=== PATIENT | female | born 1945 | race Caucasian/White ===

== ENCOUNTER → 2019-03-06 11:18 | Outpatient (CLI) | payer MEDICARE, OTHER, SELFPAY ==
--- NOTE | 2019-03-06 | DI.US.S_ITS ---
PROCEDURE: US PERIPH VENOUS UP EXTREM LT INDICATIONS: SHORTNESS OF BREATH,DYSPNEA TECHNIQUE: Real-time imaging, as well as color and pulse Doppler interrogation, was performed of the right upper extremity deep veins from the inferior neck to the antecubital fossa. COMPARISON: None. FINDINGS: The internal jugular vein, visualized portions of the subclavian vein, axillary, and brachial veins are free of intraluminal thrombus. Where physically possible, the veins are normally compressible. Color and pulse Doppler demonstrate normal intraluminal flow, with expected phasicity and pulsatility. Additional scanning of the cephalic and basilic veins of the superficial system demonstrate normal compressibility, without thrombus. Right Jain's cyst measuring 3.6 x 1.1 x 2.0 cm IMPRESSION: Right Jain's cyst. No evidence of deep venous thrombosis. Dictated by: Dru Sanchez M.D. on 03/06/2019 at 13:33 Approved by: Dru Sanchez M.D. on 03/06/2019 at 13:35
--- NOTE | 2019-03-06 | DI.RAD.S_ITS ---
PROCEDURE: XR CHEST 2V INDICATIONS: SHORTNESS OF BREATH,DYSPNEA TECHNIQUE: 2 views of the chest were acquired. COMPARISON: None. FINDINGS: Surgical changes and devices: None. Lungs and pleura: Lungs are clear. No pleural effusions or pneumothorax. Mediastinum: Mediastinal contours are normal. Heart size is normal. Bones and chest wall: No suspicious bony abnormalities. Soft tissues appear unremarkable. IMPRESSION: No acute disease Dictated by: Dru Sanchez M.D. on 03/06/2019 at 13:27 Approved by: Dru Sanchez M.D. on 03/06/2019 at 13:29
== END ==
PROVIDERS: Visit Provider Internal Medicine Cardiovascular Disease
DX: R06.02 Shortness of breath (principal); R06.00 Dyspnea, unspecified; M71.21 Synovial cyst of popliteal space [Baker], right knee
CPT/HCPCS: 71046; 93971

== ENCOUNTER → 2020-07-01 16:07 | Outpatient (CLI) | payer MEDICARE, OTHER, SELFPAY ==
--- NOTE | 2020-07-01 | DI.RAD.S_ITS ---
PROCEDURE: XR KNEE RT 3V INDICATIONS: Right Knee Pain TECHNIQUE: 3 views of the knee were acquired. COMPARISON: None. FINDINGS: Bones: No fractures or dislocations. No suspicious bony lesions. Moderate medial and patellofemoral compartment narrowing. Chondrocalcinosis is present. Periarticular osteophytes are present. No gross erosions. Soft tissues: Mild joint effusion. No suspicious soft tissue calcifications. IMPRESSION: Medial patellofemoral degenerative compartment narrowing as well as chondrocalcinosis as above. Dictated by: Amada Norman M.D. on 07/01/2020 at 17:10 Approved by: Amada Norman M.D. on 07/01/2020 at 17:11
== END ==
PROVIDERS: PCP Family Medicine; Referring Provider Family Medicine; Visit Provider Family Medicine
DX: M17.11 Unilateral primary osteoarthritis, right knee (principal); M11.261 Other chondrocalcinosis, right knee
CPT/HCPCS: 73562

== ENCOUNTER → 2020-09-02 13:53 | Outpatient (CLI) | payer MEDICARE, OTHER, SELFPAY ==
[2020-09-02 15:00] LABS: Add Manual Diff / Slide Review NO; Basophils Absolute Auto 0 /uL (0-100); Basophils Percent Auto 0.7 % (0-2); Eosinophils Absolute Auto 100 /uL (0-450); Eosinophils Percent Auto 2.4 % (2-4); Hematocrit 40.3 % (36-46); Hemoglobin 13.5 g/dL (12.0-16.0); Lymphocytes Absolute Auto 1200 /uL (1100-4500); Lymphocytes Percent Auto 25.7 % (25-40); Mean Corpuscular HGB Conc 33.6 % (30-36); Mean Corpuscular Hemoglobin 32.4 PG (26-34); Mean Corpuscular Volume 96.3 fL (80-100); Monocytes Absolute Auto 500 /uL (0-900); Monocytes Percent Auto 9.8 % (3-14); Neutrophils Absolute Auto 2900 /uL (1500-7000); Neutrophils Percent Auto 61.4 % (50-75); Platelet Count 168 X10^3/uL (150-400); Red Blood Cell Count 4.19 X10^6/uL (4.0-5.2); Red Cell Distribution Width 14.2 % (11.6-14.8); White Blood Cell Count 4.7 X10^3/uL (4.5-11.0)
[2020-09-02 15:30] LABS: Hemoglobin A1C% w Est Avg Glu 5.8 % (4.0-6.0)
[2020-09-02 15:52] LABS: BUN Creatinine Ratio 18.9 (6-22); Blood Urea Nitrogen 23 mg/dL (7-17); Calcium 9.5 mg/dL (8.4-10.2); Carbon Dioxide 25 mmol/L (22-32); Chloride 105 mmol/L (98-107); Estimated Glomerular Filt Rate 42.7 mL/min (>60); Glucose 108 mg/dL (80-110); HEMOLYSIS < 15 (0-50); Potassium 4.7 mmol/L (3.4-5.1); Sodium 136 mmol/L (137-145)
== END ==
PROVIDERS: PCP Family Medicine; Referring Provider Orthopaedic Surgery Adult Reconstructive Orthopaedic Surgery; Visit Provider Orthopaedic Surgery Adult Reconstructive Orthopaedic Surgery
DX: Z01.818 Encounter for other preprocedural examination (principal); R73.9 Hyperglycemia, unspecified; Z01.812 Encounter for preprocedural laboratory examination
CPT/HCPCS: 36415; 80048; 83036; 85025; 93005

== ENCOUNTER → 2020-09-05 08:44 | Outpatient (CLI) | payer MEDICARE, OTHER, SELFPAY ==
[2020-09-05 11:07] LABS: COVID19 -Nasal RAPID Negative (Negative)
== END ==
PROVIDERS: PCP Family Medicine; Visit Provider Nurse Practitioner
DX: Z01.812 Encounter for preprocedural laboratory examination (principal); Z20.828 Contact with and (suspected) exposure to other viral communicable diseases
CPT/HCPCS: 87635; C9803

== ENCOUNTER 2020-09-08 14:45 | Observation (INO) | payer MEDICARE, OTHER, SELFPAY ==
[2020-09-02 11:45] VITALS: BMI 36.6
[2020-09-07] VITALS (17 sets, daily range): BP systolic 127–181; BP diastolic 59–89; PULSE 66–88; RESP 10–19; TEMP 35.8–36.6; O2SAT 89–98; BMI 34.9; BMI 38.8
--- NOTE | 2020-09-07 | DI.RAD.S_ITS ---
PROCEDURE: XR KNEE RT 1TO2V INDICATIONS: POST OP TECHNIQUE: To view(s) of the knee acquired. COMPARISON: Merged With [facility], , XR KNEE RT 3V, 07/01/2020, 16:10. FINDINGS: Bones: Patient is status post knee joint arthroplasty. Hardware components are in expected positions. Visualized bony structures are intact. Soft tissues: Overlying postoperative changes are noted. IMPRESSION: Normal alignment after right total knee arthroplasty. Dictated by: Barry Simpson M.D. on 09/07/2020 at 11:12 Approved by: Barry Simpson M.D. on 09/07/2020 at 11:13
[2020-09-07] MEDS: LACTATED RINGERS 1,000 ML 42 ML IV ×2 (07:00→09:39)
[2020-09-07] MEDS: ACETAMINOPHEN 325 MG TABLET 975 MG PO (07:06)
[2020-09-07] MEDS: CELECOXIB 200 MG CAPSULE 400 MG PO (07:06)
--- NOTE | 2020-09-07 07:38 | PM.PREOP ---
Pre-operative Note COVID-19 COVID-19 status: Negative Result date/Date tested (Pos, Neg/Pending): 09/05/20 Interval Note History & Physical reviewed/Exam performed by Physician: Yes Changes to H&P: No H&P completed within 30 days and has changed as indicated here:: Plan for right TKA
[2020-09-07] MEDS: CEFAZOLIN 2 GM/100 ML FROZ.PIGGY IV ×3 (08:13→23:56)
[2020-09-07] MEDS: TRANEXAMIC ACID 1,000 MG VIAL 1000 MG IV ×2 (08:25→09:31)
--- NOTE | 2020-09-07 08:32 | SUR.OPER ---
Supine on padded OR bed, head on pillow, arms secured on padded arm boards at <90 degrees abduction, legs uncrossed, safety belt at lower abdomen, tape over blanket over left lower leg. Right leg on padded bed in control of surgeon.
[2020-09-07] MEDS: KETOROLAC 30 MG/ML VIAL IV (08:39)
[2020-09-07] MEDS: ROPIVACAINE 0.5% PF 30ML 20 ML INJ (08:39)
[2020-09-07] MEDS: MORPHINE 4 MG/ML INJ INJ (08:40)
[2020-09-07] MEDS: POVIDONE-IODINE SPONGE STICKS 1 APPLIC TOP (08:40)
--- NOTE | 2020-09-07 09:47 | P.OP_ITS ---
Operative Date/Time/Diagnoses Date of procedure: 09/07/20 Time of procedure: 09:47 Pre-op diagnosis: right knee OA Post-op diagnosis: same Procedure & Clinicians Procedure: Right TKA Same procedure as scheduled: Yes Indications: Right knee OA resistant to further conservative care Surgeon: Too Otoole Mechanical Technical Service Specialist: Kita Gonzalez Anesthesia Type: General Operative Notes Findings: Right knee OA with varus alignment Closure Type: primary Specimen(s): none sent Prosthetic devices, grafts, tissues, transplants, or devices: Francois and nephew BCS Journey 2 size 6 right femoral component Size 4 right Journey tibial base plate 29 mm simone 2 oval button Right size 3-411 mm thick Journey 2 BCS polyethylene Estimated Blood Loss (mL): 200 Blood products transfused: none Tourniquet time (min): 52 Procedure in detail: Patient was met in the preoperative holding area where the site and side of surgery marked by MD. All last minute questions were answered. Informed consent had been reviewed in preoperative clinic but was also reviewed the preop holding area. Patient was then brought back to operating room where she was induced under general anesthesia. She had not received a spinal anesthetic after several attempts. The right lower extremity then had a nonsterile tourniquet placed on the right thigh and the right lower extremity then prepped and draped in normal sterile fashion. A surgical time-out was performed verifying site and side of surgery as well as the name of the patient. A incision over the right knee in line with the long axis of the extremity was made in the skin with a 10. Blade. The medial lateral flaps were then elevated with a new 10. Blade and a medial parapatellar arthrotomy was performed. Hoffa's fat pad was then removed as well as the lateral meniscus. The ACL was then also removed. Whitesides line was marked and a drill was used to gain access to the femoral canal proximally 1 cm anterior tthe PCL footprint. The same drill was then used to gain access to the tibial canal at the ACL footprint. Intramedullary robert with cutting jig was then placed for the right femur. This cut was made in neutral position. The intramedullary robert was then placed inside the tibia and the cutting jig was then placed the skin and underneath the medial sclerotic bone. The varus valgus alignment was verified with a drop robert. This cut was then made and the tibial bone piece was removed along with the medial meniscus. This point extension block was brought in with a little laxity at 9 mm and 11 mm block was then placed with good stability and no varus valgus laxity. Gap gold reclaimer was then used to set rotation this was then verified against Demarcus's line. The femur was sized to size 6 the 5 in 1 cutting block was then malleted into place and all 5 cuts were then made. The knee was trialed with a size 6 femoral component and a size 4 tibial component with 11 mm CR polyethylene. This provided good varus valgus stability as well as flexion- extension range of motion. There was no lift-off in deep flexion. The patella was then freehand cut and sized to 29 mm oval button. This was then drilled and 29 mm oval button was then placed and brought through range of motion there was no lift-off of the patellar button. The tibial base plate was then marked using of floating technique. The trial components were then removed and the tibial base plate was then returned on the tibia and drilled and punched for the tibial keel. This point all components were removed the knee was thoroughly irrigated and local anesthetic was then placed into the periarticular soft tissues with a focus in the posterior capsule. Pulse lavage was used to clean the cut edges of the femur patella and tibia. Services the were then copiously dried. Cement was then packed into the tibial keel and the finger packed onto the cut surface of the tibia. The tibial base plate had cement placed on the undersurface of the tibial plate was then malleted into place. Excess cement was removed with a [place]. Cement was then finger packed onto the cut surface of the femur as well as placed onto the feet of the femoral component. This was then malleted into place and all excess cement was removed. 11 mm thick CR polyethylene trial was then placed in a knee was brought to full extension and the ankle was held in internal rotation. Cement was then packed onto the cut surface of the patella and between pegs on the patellar button. This was then clamped in place excess cement was removed. Betadine solution was then placed into the wound for sev eral minutes prior to being pulse lavage away with copious normal saline. The tourniquet was then let down at 52 minutes of time. Once the cement was fully cured the trial component was removed 11 mm thick the BCS polyethylene was then selected and placed. Verifying that the medial and lateral tabs were well engaged without any soft tissue interposition the medial parapatellar arthrotomy was then closed using 1. Vicryl interrupted fashion followed by a Quill suture in running fashion. The subcutaneous layer was then closed with interrupted 2 Vicryl followed by 3-0 Stratafix in the subcuticular layer followed by Dermabond and Aquacel dressing. Complications: none Post-operative Condition: stable Disposition: PACU Plan for aftercare: WBAT RLE, 24 hours post-op abx, ASA 81mg BID for 6 weeks
--- NOTE | 2020-09-07 10:47 | PC.NURSE ---
Day shift: Pt on AC unit from PACU at approx 1040. SHe is A&Ox3. FIBERGLASS TUBE MOLDER intact and PPP. VS WNL. RA 95%. SCD's tolerated. Bed alarm is on. Dr Otoole has seen the Pt. Denies any pain or nausea. Tolerating ice chips. Oriented to room and call light. Call light in reach. Bed alarm is on. Pt agrees to ot get OOB w/o help from staff.
[2020-09-07] MEDS: LACTATED RINGERS 1,000 ML 100 ML IV ×2 (11:01→21:08)
[2020-09-07 11:19] LABS: Add Manual Diff / Slide Review NO; Basophils Absolute Auto 0 /uL (0-100); Basophils Percent Auto 0.6 % (0-2); Eosinophils Absolute Auto 100 /uL (0-450); Eosinophils Percent Auto 1.1 % (2-4); Hematocrit 39.5 % (36-46); Hemoglobin 13.1 g/dL (12.0-16.0); Lymphocytes Absolute Auto 1300 /uL (1100-4500); Mean Corpuscular HGB Conc 33.1 % (30-36); Mean Corpuscular Hemoglobin 31.8 PG (26-34); Monocytes Absolute Auto 400 /uL (0-900); Neutrophils Absolute Auto 4000 /uL (1500-7000); Neutrophils Percent Auto 68.3 % (50-75); Platelet Count 156 X10^3/uL (150-400); Red Blood Cell Count 4.11 X10^6/uL (4.0-5.2); Red Cell Distribution Width 14.6 % (11.6-14.8); White Blood Cell Count 5.9 X10^3/uL (4.5-11.0)
[2020-09-07] MEDS: ACETAMINOPHEN 325 MG TABLET 650 MG PO ×2 (13:31→19:23)
[2020-09-07] MEDS: OXYCODONE IR 10 MG TABLET PO ×4 (13:31→22:26)
--- NOTE | 2020-09-07 15:40 | PT.IIE ---
Addendum entered and electronically signed by Charity Shepherd PT 09/07/20 17:46: Additional goal: pt will use platform step to access tall bed CGA Original Note: Addendum entered and electronically signed by Charity Shepherd PT 09/07/20 17:19: Pt is LUMMI, does not use hearing aids. Original Note: Current Diagnoses Unilateral primary osteoarthritis, right knee (09/07/20) Surgery Performed Operation Date: 09/07/20 07:45 Actual Procedures p Total Knee Arthroplasty(Right) - Too Otoole MD Surgical History (Last Updated 09/02/20 @ 12:10 by Criss Vicente RN) History of bladder surgery History of colon resection (~2013) Hx of appendectomy Hx of bilateral cataract extraction (07/2020) Hx of cholecystectomy Medical History (Last Updated 09/02/20 @ 11:49 by Criss Vicente RN) Diabetes Diverticulosis HLD (hyperlipidemia) HTN (hypertension) Insomnia Osteoarthritis Physical Therapy Inpatient Evaluation/Re-Eval M1 PT/OT-IP Prior Functional Status Start: 09/07/20 11:21 Freq: NEEDED Status: Active Protocol: Document 09/07/20 15:38 AW (Rec: 09/07/20 16:19 AW [id number]) Medical Review Prior Functional Status Medical History Reviewed Yes Communication WNL. Pt is an effective and verbose verbal communicator. Mobility and Gait Pt has been using a 4WW and/or a SPC for all mobility over the past two years. she states she could walk up to 15 minutes at a time with an AD. Activities of Daily Living and IADL's Independent with all ADL's. Prior Functional Level (Other details) Pt denies history of falls. I 'm super careful. Social History Household Members spouse Living Arrangements House Number of Floors (Floors) Two Floors Number of Stairs To Enter/Railing? 2STE with wide bilateral rails . Pt can only use one rail at a time. Home Environment High Toilet Home Equipment Four Wheel Walker,Straight Cane,Bedside Commode,Grab Bars Near Toilet,Grab Bars In Shower Employment Status Retired Additional Social History Comment Pt uses a walk-in tub for bathing. Her bed is tall and she uses a stool to step up to it. She lives with her spouse , Fady, who will be home and able to assist at discharge. M2 PT-IP Current Condition Start: 09/07/20 11:21 Freq: NEEDED Status: Active Protocol: Document 09/07/20 15:38 AW (Rec: 09/07/20 16:26 AW [id number]) Physical Therapy Current Condition Current Condition Evaluation Date 09/07/20 Treatment Diagnosis R TKA; difficulty in walking Weight Bearing Status Weight Bearing Status Weight Bear as Tolerated M3 PT-IP Subjective Start: 09/07/20 11:21 Freq: NEEDED Status: Active Protocol: Document 09/07/20 15:38 AW (Rec: 09/07/20 16:26 AW [id number]) Subjective Physical Therapy Visit Type Type Initial Evaluation Visit Start Time 12:50 Visit Stop Time 15:38 Total Visit Minutes 52 Notes split visits [id number] and [id number] to coordinate with RN for pain management Number of [employer] MEMBER Visits 0 Physical Therapy Visit Comments Patient Comments Pt is willing to participate with PT Patient Goals To return home with spouse support Therapy Pain Assessment Pain When Pain Assessed At Rest Pain Present Pain Present Pain Reported Location right knee Intensity 5 Scale Used Numeric (0 - 10) Pain Management Techniques Timing of Activity with Medications M4 PT-IP Mobility and Gait Start: 09/07/20 11:21 Freq: NEEDED Status: Active Protocol: Document 09/07/20 15:38 AW (Rec: 09/07/20 16:26 AW [id number]) PT-Bed Mobility Assessment Supine to Sit Supine to Sit Minimal Assistance,1 Person Assistance Sit to Supine Sit to Supine Minimal Assistance,1 Person Assistance Scooting Scooting to Edge of Bed Contact Guard Assistance PT-Transfer Assessment Sit to and From Stand Sit to and from Stand Minimal Assistance,1 Person Assistance,Use of Upper Extremities Equipment Transfer Assistive Device Gait Belt,Front Wheeled Walker Transfers Transfer Destination Bed,Toilet Transfer Technique Stand Step Pivot Transfer Ability Level of Assist Minimal Assistance,1 Person Assistance Comments Mobility Comments Pt was reclined in bed with BP 154/90 HR 73 SpO2 96% RA. With HOB flat, pt completed supine to sit min A x 1 and sat EOB without UE support. She scooted herself forward and stood from the bed in lowest position min A x 1. After brief weight shifting and education on WB status, pt ambulated to the window with FWW CGA, turned around, and ambulated to the toilet. She transferred to and from the toilet with heavy use of right -side grab bar min A x 1. Pt completed all pericare without assist. She then ambulated with FWW CGA to the bed where she sat and then scooted herself toward [facility] CGA. Pt needed min A x 1 to elevate her operative leg to the bed. Pt was positioned with call light and all needs in reach, bed alarm on for safety. Gait Assessment Gait Gait Assistance Required: Contact Guard Assist Distance (Feet) 12 Able to Maintain Weight Bearing Status Yes During Gait Assistive Devices Assistive Device Gait Belt,Front Wheeled Walker Orthotic/Prosthetic Devices or Brace: No Gait Deviations General Gait Pattern Antalgic,Decreased Stride Length,Decreased Feet Clearance,Flexed Trunk,Step-to Gait,Wide Based Gait Factors Limiting Gait Function Factors Limiting Gait Function Decreased Activity Tolerance, Decreased Sensation,Decreased Strength,Limited Range of Motion,Pain,Poor Balance,Poor Safety Awareness Comments Gait Comments See mobility comments for details. Stair Climbing Assessment Comments Stair Climbing Comments Not assessed. PT-Balance Assessment Sitting Balance and Reactions Static Sitting Balance Ability Good Dynamic Sitting Balance Ability Good Standing Balance and Reactions Static Standing Balance Ability Good Dynamic Standing Balance Ability Good Device Used FWW M5 PT-IP Objective Assessments Start: 09/07/20 11:21 Freq: NEEDED Status: Active Protocol: Document 09/07/20 15:38 AW (Rec: 09/07/20 16:34 AW [id number]) Orientation Orientation/Cognition Level of Alertness Alert Orientation Name,Day of Week,Place, Situation Safety Awareness Decreased Safety Awareness Memory Description No Deficits Noted Gross Range of Motion Lower Extremity ROM Assessment Right Impaired Strength Lower Extremity Strength Assessment Right Impaired Coordination Assessment Gross Coordination Gross Coordination WNL Sensation Assessment Sensation Gross Sensation WNL Muscle Tone Muscle Tone WNL Yes M6 PT-IP Treatment Start: 09/07/20 11:21 Freq: NEEDED Status: Active Protocol: Document 09/07/20 15:38 AW (Rec: 09/07/20 16:34 AW [id number]) Physical Therapy Treatment Exercises Exercises Ankle Pumps,Gluteal Sets Education Education Provided Precautions,Weight Bearing Status,Post-Op Packet,Safety Other Treatments Other Treatment Performed Provided education on role of PT, plan of care, WB status, and rationale for use of FWW after surgery. M7 PT-IP Assessment and Plan Start: 09/07/20 11:21 Freq: NEEDED Status: Active Protocol: Document 09/07/20 15:38 AW (Rec: 09/07/20 16:34 AW [id number]) PT Summary Assessment and Plan Potential Rehabilitation Potential Good Status of Condition at Evaluation Evolving Summary Impairments Pain,ROM,Strength,Balance,Bed Mobility,Transfers,Gait, Activity Tolerance Assessment Summary Ivet is a 75yo woman seen for PT evaluation on POD0 following R TKA. She is modified independent at baseline with use of SPC or 4WW up to 15 minutes at a time . On evaluation, pt requried min assist for most mobility with FWW. Educated pt on need for FWW vs 4WW due to heavy weightbearing with upper extremities and pt understands . Will follow up with pt in AM to determine if she needs hospital to dispense a walker. PT anticipates pt will be safe to discharge home with assist and outpatient therapy once medically cleared. Pt will need stair training prior to discharge. Goals Bed Mobility Goal Standby Assistance Transfer Goal Standby Assistance,Front Wheeled Walker Gait Goal Standby Assistance,Front Wheel Walker Gait Distance 100 Other Goals - up/down 2 steps with unilateral rail CGA Days to Meet Goals 4 Frequency of Treatment Frequency Of Treatment Twice a Day Treatment Plan Physical Therapy Treatment Plan Bed Mobility Training,Transfer Training,Gait Training, Therapeutic Exercise,Balance Retraining,Post Op Education, Discharge Planning,Hot or Cold Pack Recommendations To Nursing Amount of Assist Needed 1 Person Assist Discharge Recommendations PT Discharge Recommendations Home with Assistance, Outpatient PT Equipment Needed for Home Before FWW Discharge Transportation Needs at Discharge Private Vehicle
[2020-09-07] MEDS: DOCUSATE 100 MG CAPSULE PO (19:24)
[2020-09-07] MEDS: ATORVASTATIN 20 MG TABLET PO (19:24)
[2020-09-07] MEDS: ASPIRIN EC 81 MG TABLET PO (19:24)
[2020-09-08] VITALS (7 sets, daily range): BP systolic 119–147; BP diastolic 52–93; PULSE 70–97; RESP 16–18; TEMP 36.3–37.1; O2SAT 90–94
[2020-09-08] MEDS: OXYCODONE IR 10 MG TABLET PO ×3 (01:40→07:30)
--- NOTE | 2020-09-08 04:49 | PC.NURSE ---
Patient c/o knee pain, medicated with pain med see nov.
[2020-09-08 05:43] LABS: Hematocrit 36.5 % (36-46); Hemoglobin 12.1 g/dL (12.0-16.0)
--- NOTE | 2020-09-08 07:28 | PM.PNPO.1 ---
Subjective Subjective Date Patient Seen: 09/08/20 Time Patient Seen: 07:29 Interval history: POD #1 s/p R TKA with Dr. Otoole. Patient is a poor historian this morning. She is alert and oriented, but mildly confused about questions this morning involving pain control and medications. She is not consistent with her answers. She states she did get up with physical therapy yesterday in her room. She states she has oxycodone at home already. Exam Vital Signs (past 8 hours): - 09/08/20 05:38 Temperature 97.5 F L Pulse Rate 90 Respiratory Rate 16 Blood Pressure 147/71 H Pulse Oximetry 90 L Oxygen Delivery Method Room Air Oxygen Flow Rate 0 Narrative Exam Narrative: Patient lying in bed no acute distress. She is alert and oriented x3. Dressing on right knee is CDI. Beck wrap in place. SCDs on and functioning. Calves are soft, compressible, nontender bilaterally. Sensation intact to light touch throughout bilateral lower extremities. She is able to actively dorsiflex and plantar flex. Pulses are symmetrical. Objective Labs Result Diagrams: 09/08/20 05:15 09/08/20 05:15 Labs: Laboratory Results - last 24 hr 09/07/20 09/08/20 11:10 05:15 WBC 5.9 RBC 4.11 Hgb 13.1 12.1 Hct 39.5 36.5 MCV 96.0 MCH 31.8 MCHC 33.1 RDW 14.6 Plt Count 156 Neut % (Auto) 68.3 Lymph % (Auto) 23.0 L Meigs % (Auto) 7.0 Eos % (Auto) 1.1 L Baso % (Auto) 0.6 Neut # (Auto) 4000 Lymph # (Auto) 1300 [place]igs # (Auto) 400 Eos # (Auto) 100 Baso # (Auto) 0 PFSH Medical History Diabetes Diverticulosis HLD (hyperlipidemia) HTN (hypertension) Insomnia Osteoarthritis Surgical History History of bladder surgery History of colon resection (~2013) Hx of appendectomy Hx of bilateral cataract extraction (07/2020) Hx of cholecystectomy Social History household members: spouse Smoking Status: Never smoker alcohol intake: never Assessment & Plan Post-op Postoperative Procedures: Procedures Operation Date: 09/07/20 07:45 Actual Procedures Side Surgeon p Total Knee Arthroplasty Right Too Otoole MD Patient will continue to mobilize with physical therapy today. Continue current pain control. Her mild confusion is likely from oxycodone, or anesthesia yesterday. Sodium has decreased from 136 to 132 but at this time unlikely to be SIADH. Advised her to monitor her blood sugars closely at home as these tend to elevate after surgery. Patient will likely discharge home tomorrow.
[2020-09-08 07:55] LABS: Alanine Aminotransferase 8 IU/L (<35); Albumin 3.2 g/dL (3.5-5.0); Albumin Globulin Ratio 1.1 (1.0-2.8); Alkaline Phosphatase 59 U/L (38-126); Aspartate Aminotransferase 20 IU/L (14-36); Bilirubin Total 0.4 mg/dL (0.2-1.3); Blood Urea Nitrogen 19 mg/dL (7-17); Calcium 8.8 mg/dL (8.4-10.2); Carbon Dioxide 28 mmol/L (22-32); Chloride 102 mmol/L (98-107); Estimated Glomerular Filt Rate 47.2 mL/min (>60); Globulin 2.8 g/dL (1.7-4.1); Glucose 131 mg/dL (80-110); HEMOLYSIS < 15 (0-50); Potassium 4.3 mmol/L (3.4-5.1); Sodium 132 mmol/L (137-145)
[2020-09-08] MEDS: DOCUSATE 100 MG CAPSULE PO ×2 (08:57→20:51)
[2020-09-08] MEDS: lisinopriL 5 MG TABLET PO (08:57)
[2020-09-08] MEDS: METOPROLOL IR 50 MG TABLET 100 MG PO (08:57)
[2020-09-08] MEDS: ACETAMINOPHEN 325 MG TABLET 650 MG PO ×2 (08:58→20:51)
[2020-09-08] MEDS: ASPIRIN EC 81 MG TABLET PO ×2 (08:58→20:51)
[2020-09-08] MEDS: ESTROGENS, CONJUGATED 0.625 MG TABLET 1.25 MG PO (08:59)
--- NOTE | 2020-09-08 09:41 | PT.IPTN ---
Current Diagnoses Unilateral primary osteoarthritis, right knee (09/07/20) Surgery Performed Operation Date: 09/07/20 07:45 Actual Procedures p Total Knee Arthroplasty(Right) - Too Otoole MD Physical Therapy Treatment Note M2 PT-IP Current Condition Start: 09/07/20 11:21 Freq: NEEDED Status: Active Protocol: Document 09/07/20 15:38 AW (Rec: 09/07/20 16:26 AW [id number]) Physical Therapy Current Condition Current Condition Evaluation Date 09/07/20 Treatment Diagnosis R TKA; difficulty in walking Weight Bearing Status Weight Bearing Status Weight Bear as Tolerated M3 PT-IP Subjective Start: 09/07/20 11:21 Freq: NEEDED Status: Active Protocol: Document 09/08/20 09:15 CLB (Rec: 09/08/20 12:39 CLB [id number]) Subjective Physical Therapy Visit Type Type Treatment Note Visit Start Time 09:15 Visit Stop Time 09:41 Total Visit Minutes 26 Number of CLERK GENERAL Visits 1 Physical Therapy Visit Comments Patient Comments Pt is willing to participate with PT Therapy Pain Assessment Pain When Pain Assessed At Rest Pain Present Pain Present Pain Reported Location right knee Intensity 7 Scale Used Numeric (0 - 10) Pain Management Techniques Timing of Activity with Medications M4 PT-IP Mobility and Gait Start: 09/07/20 11:21 Freq: NEEDED Status: Active Protocol: Document 09/08/20 09:15 CLB (Rec: 09/08/20 12:39 CLB [id number]) PT-Bed Mobility Assessment Supine to Sit Supine to Sit Standby Assistance,Head of Bed Elevated Scooting Scooting to Edge of Bed Standby Assistance PT-Transfer Assessment Sit to and From Stand Sit to and from Stand Minimal Assistance,1 Person Assistance,Use of Upper Extremities Equipment Transfer Assistive Device Gait Belt,Front Wheeled Walker Transfers Transfer Destination Chair Transfer Technique Stand Step Pivot Transfer Ability Level of Assist Minimal Assistance,1 Person Assistance Comments Mobility Comments Pt in bed upon arrival requiring SBA for supine to sit, pt donned underwear SBA while sitting on EOB with cues to put operated leg on first. Pt then required Min A and cues for hand placment for safe push off from stable surface rather than both hand on walker. Pt required SBA while pt pulled underwear over hips. Pt ambulated ~15ft with Mod A as pt continued to push walker forward with out stretch arms and refusing to use walker as instructed for safety stating I don't like using it that way, it doesn't feel right. Pt wanted to sit in chair and once close to chair pushed walker away and reach both arms towards chair, CLERK GENERAL use gait belt to guide pts hips into chair. Once in chair pt was given further demonstration on how to use FWW appropriately for safety. Pt verbalized understanding but refused to ambulate further, pt agreeable to perform seated ther ex. Pt left in chair with all needs within reach, COOLER ROOM WORKER informed that there wasn't a chair alarm but pt not safe to be left alone and COOLER ROOM WORKER located a chair alarm and placed it on the pt. Spoke with CANDACE Núñez about pt being impulsive, RN stated she would call . to come for CG training at 1230 today. Gait Assessment Gait Gait Assistance Required: Minimum Assistance,1 Person Assist Distance (Feet) 15 Able to Maintain Weight Bearing Status Yes During Gait Assistive Devices Assistive Device Gait Belt,Front Wheeled Walker Orthotic/Prosthetic Devices or Brace: No Gait Deviations General Gait Pattern Antalgic,Decreased Stride Length,Decreased Feet Clearance,Flexed Trunk,Step-to Gait,Wide Based Gait Factors Limiting Gait Function Factors Limiting Gait Function Decreased Activity Tolerance, Decreased Sensation,Decreased Strength,Difficulty Following Directions,Limited Range of Motion,Pain,Poor Balance,Poor Safety Awareness Comments Gait Comments See mobility comments for details. Stair Climbing Assessment Comments Stair Climbing Comments pt refused stair training. PT-Balance Assessment Sitting Balance and Reactions Static Sitting Balance Ability Good Dynamic Sitting Balance Ability Good Standing Balance and Reactions Static Standing Balance Ability Good Dynamic Standing Balance Ability Good Device Used FWW M5 PT-IP Objective Assessments Start: 09/07/20 11:21 Freq: NEEDED Status: Active Protocol: Document 09/07/20 15:38 AW (Rec: 09/07/20 16:34 AW [id number]) Orientation Orientation/Cognition Level of Alertness Alert Orientation Name,Day of Week,Place, Situation Safety Awareness Decreased Safety Awareness Memory Description No Deficits Noted Gross Range of Motion Lower Extremity ROM Assessment Right Impaired Strength Lower Extremity Strength Assessment Right Impaired Coordination Assessment Gross Coordination Gross Coordination WNL Sensation Assessment Sensation Gross Sensation WNL Muscle Tone Muscle Tone WNL Yes M6 PT-IP Treatment Start: 09/07/20 11:21 Freq: NEEDED Status: Active Protocol: Document 12/29/20 09:15 CLB (Rec: 12/29/20 12:39 CLB [id number]) Physical Therapy Treatment Exercises Exercises Ankle Pumps,Gluteal Sets,Quad Sets Education Education Provided Precautions,Weight Bearing Status,Post-Op Packet,Safety Other Treatments Other Treatment Performed education on FWW use M7 PT-IP Assessment and Plan Start: 09/07/20 11:21 Freq: NEEDED Status: Active Protocol: Document 09/08/20 09:15 CLB (Rec: 09/08/20 12:39 CLB [id number]) PT Summary Assessment and Plan Potential Rehabilitation Potential Good Status of Condition at Evaluation Evolving Summary Impairments Pain,ROM,Strength,Balance,Bed Mobility,Transfers,Gait, Activity Tolerance Assessment Summary Pt required SBA for supine-sit and scooting to EOB. Pt is impulsive during gait and required Mod A for ambulation due to refusal to follow safe walker management. Pt scheduled at 1230 for CG training. Goals Bed Mobility Goal Standby Assistance Transfer Goal Standby Assistance,Front Wheeled Walker Gait Goal Standby Assistance,Front Wheel Walker Gait Distance 100 Other Goals - up/down 2 steps with unilateral rail CGA Days to Meet Goals 4 Frequency of Treatment Frequency Of Treatment Twice a Day Treatment Plan Physical Therapy Treatment Plan Bed Mobility Training,Transfer Training,Gait Training, Therapeutic Exercise,Balance Retraining,Post Op Education, Discharge Planning,Hot or Cold Pack Recommendations To Nursing Amount of Assist Needed 1 Person Assist Discharge Recommendations PT Discharge Recommendations Home with Assistance, Outpatient PT Equipment Needed for Home Before FWW Discharge Transportation Needs at Discharge Private Vehicle
--- NOTE | 2020-09-08 10:19 | CM.DANOTE ---
DCP: Case received, EMR reviewed and met with patient. Introduced self and role. Was able to obtain some information from patient regarding her baseline activity status prior to surgery, as well as current living situation. DCP assessment completed with information currently available. Patient is a 75 year old female who admitted yesterday morning to the care of the orthopedic team. PCP: Dr. Alexander. Payer: confirmed: Medicare/[employer]. Patient came to the hospital via private vehicle for right knee surgery. Patient had right total knee arthroplasty. She has had history of osteoarthritis. Met with patient in her room. She was laying in bed, was somewhat groggy. Confirmed with her that she resides in [place] with her , Fady. She confirmed that he is supportive, and will be assisting her when she goes home. At baseline, patient indicated that she has a cane and walker for home use. She also mentioned that she has stairs in her home, but has bathrooms downstairs, and would be able to stay downstairs if needed. P.T. worked with patient yesterday, and indicated that plan is home with assist. Today, according to Carole BESS, patient is impulsive, not following instructions related to using her walker. Nurse, Mckenzie, will contact , and ortho, as well. Will follow up with P.T, and , if needed. Patient is already set up with outpatient P.T. per patient. Can consider home health if needed, if she is home bound. P: DCP will follow closely. Home is the plan, but she will be here at the hospital for another day. Will see how patient progresses today. She most likely would not qualify for skilled, since she would be OBS, confirmed with ZACHARY Thompson. Home Health may be an option if patient is home bound and not able to go to outpatient P.T. Estrellita Welsh RN/Dance Therapist
[2020-09-08] MEDS: ONDANSETRON 4 MG/2 ML INJ IV (11:53)
[2020-09-08] MEDS: INSULIN ASPART 100 UNIT/ML INSULN PEN SUBCUT (12:16)
--- NOTE | 2020-09-08 12:52 | PC.NURSE ---
Patient was confused and forgetful this AM, had quite a bit of pain per off going shift report Niesha RN. Patient had quite a bit of pain medication in the night, trying to see how it is today with only Tylenol. Patient has also been nauseated this shift. 4mg IV zofran given, Patient is still nauseated an hour after. Prakash Aguilar notified.
--- NOTE | 2020-09-08 13:11 | PT.IPTN ---
Current Diagnoses Unilateral primary osteoarthritis, right knee (09/07/20) Surgery Performed Operation Date: 09/07/20 07:45 Actual Procedures p Total Knee Arthroplasty(Right) - Too Otoole MD Physical Therapy Treatment Note M2 PT-IP Current Condition Start: 09/07/20 11:21 Freq: NEEDED Status: Active Protocol: Document 09/07/20 15:38 AW (Rec: 09/07/20 16:26 AW [id number]) Physical Therapy Current Condition Current Condition Evaluation Date 09/07/20 Treatment Diagnosis R TKA; difficulty in walking Weight Bearing Status Weight Bearing Status Weight Bear as Tolerated M3 PT-IP Subjective Start: 09/07/20 11:21 Freq: NEEDED Status: Active Protocol: Document 09/08/20 12:50 CLB (Rec: 09/08/20 14:57 CLB [id number]) Subjective Physical Therapy Visit Type Type Treatment Note Visit Start Time 12:50 Visit Stop Time 13:11 Total Visit Minutes 21 Notes Pt present. Number of SUBSORTER Visits 2 Physical Therapy Visit Comments Patient Comments Pt nauseous and wanting to go back to bed, refused ambulation and supine ther ex. Therapy Pain Assessment Pain When Pain Assessed At Rest Pain Present Pain Present Pain Reported Location right knee Intensity 10 Scale Used Numeric (0 - 10) Pain Management Techniques Modification of Treatment,Re- positioning,Timing of Activity with Medications M4 PT-IP Mobility and Gait Start: 09/07/20 11:21 Freq: NEEDED Status: Active Protocol: Document 09/08/20 12:50 CLB (Rec: 09/08/20 14:57 CLB [id number]) PT-Bed Mobility Assessment Sit to Supine Sit to Supine Minimal Assistance,1 Person Assistance PT-Transfer Assessment Sit to and From Stand Sit to and from Stand Minimal Assistance,1 Person Assistance,Use of Upper Extremities Equipment Transfer Assistive Device Gait Belt,Front Wheeled Walker Transfers Transfer Destination Bed Transfer Technique Stand Step Pivot Transfer Ability Level of Assist Minimal Assistance,1 Person Assistance Comments Mobility Comments Pt in chair upon arrival stating she is nauseous and just wants to get back to bed. Pt also states pain is 10/10. Pt scooted forward in chair SBA then stood requiring Min A and cues for proper hand placement for safety. Pt performed stand step pivot then pushed walker away reaching for bed even though cues were given to keep walker close. Pt then sat quickly on bed then required Min A of RLE onto bed and cues to bridge with LLE and center hips in bed. Pt performed on HS then stated she wouldn't do any more ther ex due to pain of 10/10. Left pt in bed with alarm on and all needs within reach, present. will return for CG training tomorrow at 1200. Gait Assessment Comments Gait Comments pt refused ambulation due to pain and nausea. Stair Climbing Assessment Comments Stair Climbing Comments unable due to pt pain M5 PT-IP Objective Assessments Start: 09/07/20 11:21 Freq: NEEDED Status: Active Protocol: Document 09/07/20 15:38 AW (Rec: 09/07/20 16:34 AW [id number]) Orientation Orientation/Cognition Level of Alertness Alert Orientation Name,Day of Week,Place, Situation Safety Awareness Decreased Safety Awareness Memory Description No Deficits Noted Gross Range of Motion Lower Extremity ROM Assessment Right Impaired Strength Lower Extremity Strength Assessment Right Impaired Coordination Assessment Gross Coordination Gross Coordination WNL Sensation Assessment Sensation Gross Sensation WNL Muscle Tone Muscle Tone WNL Yes M6 PT-IP Treatment Start: 09/07/20 11:21 Freq: NEEDED Status: Active Protocol: Document 09/08/20 12:50 CLB (Rec: 09/08/20 14:57 CLB [id number]) Physical Therapy Treatment Other Treatments Other Treatment Performed HS M7 PT-IP Assessment and Plan Start: 09/07/20 11:21 Freq: NEEDED Status: Active Protocol: Document 09/08/20 12:50 CLB (Rec: 09/08/20 14:57 CLB [id number]) PT Summary Assessment and Plan Summary Impairments Pain,ROM,Strength,Balance,Bed Mobility,Transfers,Gait, Activity Tolerance Progress Towards Goals Slow Progress due to Pain Assessment Summary Pt transferred from chair to bed requiring Min A and max verbal cues to keep walker close. Pt is impulsive and has difficulty following directions for walker management. Pt reports 10/10 pain. Pt refused ambulation and ther ex due to pain and nausea. Goals Bed Mobility Goal Standby Assistance Transfer Goal Standby Assistance,Front Wheeled Walker Gait Goal Standby Assistance,Front Wheel Walker Gait Distance 100 Other Goals - up/down 2 steps with unilateral rail CGA Days to Meet Goals 4 Frequency of Treatment Frequency Of Treatment Twice a Day Treatment Plan Physical Therapy Treatment Plan Bed Mobility Training,Transfer Training,Gait Training, Therapeutic Exercise,Balance Retraining,Post Op Education, Discharge Planning,Hot or Cold Pack Other Recommendations and Next Treatment Ther ex, bed mobility, sit- Focus stand, advance gait and stair training when able. , Fady Doroteo CG training. Recommendations To Nursing Amount of Assist Needed 1 Person Assist Discharge Recommendations PT Discharge Recommendations Home with Assistance, Outpatient PT Equipment Needed for Home Before FWW Discharge Transportation Needs at Discharge Private Vehicle
[2020-09-08] MEDS: TRAMADOL 50 MG TABLET PO ×2 (13:46→20:51)
[2020-09-08] MEDS: METOCLOPRAMIDE 10 MG/2 ML INJ IV (13:46)
[2020-09-08] MEDS: HYDROCODONE/ACET 10/325 TABLET 1 TAB PO (16:14)
--- NOTE | 2020-09-08 17:12 | PC.NURSE ---
PATIENT IS HAVING SOME NAUSEA WITH DINNER,REFUSES ANY NAUSEA MEDS AT THIS TIME.
[2020-09-08 17:20] LABS: Appearance Urine UA CLEAR; Bilirubin Urine UA NEGATIVE (NEGATIVE); Color Urine UA YELLOW; Glucose Urine UA NEGATIVE (Negative); Ketones Urine UA NEGATIVE (NEGATIVE); Leukocyte Esterase Urine UA NEGATIVE (NEGATIVE); Nitrite Urine UA NEGATIVE (Negative); Occult Blood Urine UA 2+ (Negative); Protein Urine UA NEGATIVE (Negative); Urobilinogen Urine UA 0.2 E.U./dL (0.2)
[2020-09-08 17:22] LABS: pH Urine UA 5.5 (4.5-8.0)
[2020-09-08 17:34] LABS: Bacteria Urine Moderate (10-30); Culture Indicated Urine Specimen Cultured; RBC Urine 1-5/HPF (0-5/HPF); Squamous Epithelial Cell Urine 1-5 /HPF (0-5/HPF); WBC Urine 1-5/HPF (0-5/HPF)
[2020-09-08] MEDS: ATORVASTATIN 20 MG TABLET PO (20:51)
[2020-09-08] MEDS: SODIUM CHLORIDE 0.9% FLUSH 10 ML IV (20:52)
[2020-09-09 03:53] VITALS: BP 126/44; PULSE 77; RESP 16; TEMP 36.8; O2SAT 92
[2020-09-09] MEDS: HYDROCODONE/ACET 10/325 TABLET 1 TAB PO ×2 (04:01→10:01)
[2020-09-09 06:27] LABS: Add Manual Diff / Slide Review NO; Basophils Absolute Auto 0 /uL (0-100); Basophils Percent Auto 0.4 % (0-2); Eosinophils Absolute Auto 100 /uL (0-450); Eosinophils Percent Auto 1.5 % (2-4); Hematocrit 36.6 % (36-46); Hemoglobin 12.1 g/dL (12.0-16.0); Lymphocytes Absolute Auto 1000 /uL (1100-4500); Lymphocytes Percent Auto 15.5 % (25-40); Mean Corpuscular HGB Conc 33.1 % (30-36); Mean Corpuscular Hemoglobin 31.9 PG (26-34); Mean Corpuscular Volume 96.3 fL (80-100); Monocytes Absolute Auto 700 /uL (0-900); Monocytes Percent Auto 11.8 % (3-14); Neutrophils Absolute Auto 4400 /uL (1500-7000); Neutrophils Percent Auto 70.8 % (50-75); Platelet Count 156 X10^3/uL (150-400); White Blood Cell Count 6.2 X10^3/uL (4.5-11.0)
[2020-09-09 06:32] LABS: Alanine Aminotransferase 7 IU/L (<35); Albumin 3.6 g/dL (3.5-5.0); Albumin Globulin Ratio 1.1 (1.0-2.8); Alkaline Phosphatase 61 U/L (38-126); Aspartate Aminotransferase 22 IU/L (14-36); BUN Creatinine Ratio 14.8 (6-22); Bilirubin Total 0.7 mg/dL (0.2-1.3); Blood Urea Nitrogen 16 mg/dL (7-17); Calcium 8.9 mg/dL (8.4-10.2); Carbon Dioxide 29 mmol/L (22-32); Chloride 103 mmol/L (98-107); Estimated Glomerular Filt Rate 49.2 mL/min (>60); Globulin 3.2 g/dL (1.7-4.1); Glucose 118 mg/dL (80-110); HEMOLYSIS < 15 (0-50); Potassium 4.3 mmol/L (3.4-5.1); Sodium 134 mmol/L (137-145); Total Protein 6.8 g/dL (6.3-8.2)
--- NOTE | 2020-09-09 07:38 | PM.PNPO.1 ---
Subjective Subjective Date Patient Seen: 09/09/20 Time Patient Seen: 07:38 Interval history: Patient's pain is mild. Denies fever chills. No nausea vomiting. Patient frustrated with physical therapy yesterday who had her walk in the navarro with her gown being open in the back. She would like to work with a different physical therapist today. Patient does wish to go home today if safe to do so. Exam Vital Signs (past 8 hours): - 09/08/20 23:44 09/09/20 03:53 Temperature 98.4 F 98.3 F Pulse Rate 77 77 Respiratory Rate 16 16 Blood Pressure 119/69 126/44 L Pulse Oximetry 91 92 Oxygen Delivery Method Room Air Oxygen Flow Rate 0 Narrative Exam Narrative: Pleasant 75-year-old female resting comfortably in bed in no apparent distress. Patient is alert and oriented. Right knee dressing is Clean, dry, intact. Sensation grossly intact distal right lower extremity. Motor functions intact distal right lower extremity. Both legs are warm and dry. SCDs on and functioning. Objective Labs Result Diagrams: 09/09/20 06:04 09/09/20 06:04 Labs: Laboratory Results - last 24 hr 09/08/20 09/08/20 09/09/20 05:15 16:30 06:04 WBC 6.2 RBC 3.80 L Hgb 12.1 Hct 36.6 MCV 96.3 MCH 31.9 MCHC 33.1 RDW 14.0 Plt Count 156 Neut % (Auto) 70.8 Lymph % (Auto) 15.5 L [place] % (Auto) 11.8 Eos % (Auto) 1.5 L Baso % (Auto) 0.4 Neut # (Auto) 4400 Lymph # (Auto) 1000 L [place] # (Auto) 700 Eos # (Auto) 100 Baso # (Auto) 0 Sodium 132 L Potassium 4.3 Chloride 102 Carbon Dioxide 28 BUN 19 H Creatinine 1.12 H Estimated GFR 47.2 L BUN/Creatinine Ratio 17.0 Glucose 131 H Calcium 8.8 Total Bilirubin 0.4 AST 20 ALT 8 Alkaline Phosphatase 59 Total Protein 6.0 L Albumin 3.2 L Globulin 2.8 Albumin/Globulin Ratio 1.1 Urine Color Yellow Urine Appearance Clear Urine pH 5.5 Ur Specific [place] 1.010 Urine Protein Negative Urine Glucose (UA) Negative Urine Ketones Negative Urine Occult Blood 2+ H Urine Nitrate Negative Urine Bilirubin Negative Urine Urobilinogen 0.2 Ur Leukocyte Esterase Negative Urine RBC 1-5/hpf Urine WBC 1-5/hpf Ur Squamous Epith Cells 1-5 /hpf Urine Bacteria Moderate (10-30) H Ur Culture Indicated? Specimen cultured 09/09/20 06:04 WBC RBC Hgb Hct MCV MCH MCHC RDW Plt Count Neut % (Auto) Lymph % (Auto) [place] % (Auto) Eos % (Auto) Baso % (Auto) Neut # (Auto) Lymph # (Auto) [place] # (Auto) Eos # (Auto) Baso # (Auto) Sodium 134 L Potassium 4.3 Chloride 103 Carbon Dioxide 29 BUN 16 Creatinine 1.08 H Estimated GFR 49.2 L BUN/Creatinine Ratio 14.8 Glucose 118 H Calcium 8.9 Total Bilirubin 0.7 AST 22 ALT 7 Alkaline Phosphatase 61 Total Protein 6.8 Albumin 3.6 Globulin 3.2 Albumin/Globulin Ratio 1.1 Urine Color Urine Appearance Urine pH Ur Specific [place] Urine Protein Urine Glucose (UA) Urine Ketones Urine Occult Blood Urine Nitrate Urine Bilirubin Urine Urobilinogen Ur Leukocyte Esterase Urine RBC Urine WBC Ur Squamous Epith Cells Urine Bacteria Ur Culture Indicated? [facility] Medical History Diabetes Diverticulosis HLD (hyperlipidemia) HTN (hypertension) Insomnia Osteoarthritis Surgical History History of bladder surgery History of colon resection (~2013) Hx of appendectomy Hx of bilateral cataract extraction (07/2020) Hx of cholecystectomy Social History household members: spouse Smoking Status: Never smoker alcohol intake: never Assessment & Plan Post-op Postoperative Procedures: Procedures Operation Date: 09/07/20 07:45 Actual Procedures Side Surgeon p Total Knee Arthroplasty Right Too Otoole MD Postop day 2 status post right total knee arthroplasty. Patient is stable. Patient seems a little confused yesterday but that has cleared. No reports of confusion per nurse. She will work with physical therapy this for glue mounter operator for morning and likely be discharged later today. Cultures pending on the UA.
[2020-09-09 08:00] VITALS: BP 155/67; PULSE 87; RESP 16; TEMP 37.3; O2SAT 91
--- NOTE | 2020-09-09 09:40 | P.DS_ITS ---
History of Present Illness History of Present Illness Date Patient Seen: 09/09/20 Time Patient Seen: 09:40 Chief complaint: OPB Narrative: See progress note Discharge Providers Provider Date of admission: 09/08/20 14:45 Discharge Date: 09/09/20 Primary care physician: Rao Alexander MD Consults: 09/07/20 10:47 Consult to Discharge Planning Routine Comment: Consult to Physical Therapy Evaluate & Treat Comment: Physician Instructions: postop TKA protocol Consult to Respiratory Therapy Evaluate & Treat Comment: Physician Instructions: Evaluate and treat Discharge provider: Herb Kee PA-C Summary Hospital Course Discharge Diagnosis: right knee OA Diabetes type 2 Hypertension Obesity, BMI 38.9 Status at Discharge Cognitive/behavioral status at discharge: at baseline, oriented Functional status at discharge: uses cane/walker Overall status at discharge: patient is progressing back to baseline Time Spent with Patient Time spent: Less than 30 minutes Exam Vital Signs (past 8 hours): - 09/09/20 03:53 09/09/20 08:00 Temperature 98.3 F 99.1 F Pulse Rate 77 87 Respiratory Rate 16 16 Blood Pressure 126/44 L 155/67 H Pulse Oximetry 92 91 Oxygen Delivery Method Room Air Oxygen Flow Rate 0 Narrative Exam Narrative: see progress note Objective Labs Result Diagrams: 09/09/20 06:04 09/09/20 06:04 Labs: Laboratory Results - last 24 hr 09/08/20 09/09/20 09/09/20 16:30 06:04 06:04 WBC 6.2 RBC 3.80 L Hgb 12.1 Hct 36.6 MCV 96.3 MCH 31.9 MCHC 33.1 RDW 14.0 Plt Count 156 Neut % (Auto) 70.8 Lymph % (Auto) 15.5 L [place] % (Auto) 11.8 Eos % (Auto) 1.5 L Baso % (Auto) 0.4 Neut # (Auto) 4400 Lymph # (Auto) 1000 L [place] # (Auto) 700 Eos # (Auto) 100 Baso # (Auto) 0 Sodium 134 L Potassium 4.3 Chloride 103 Carbon Dioxide 29 BUN 16 Creatinine 1.08 H Estimated GFR 49.2 L BUN/Creatinine Ratio 14.8 Glucose 118 H Calcium 8.9 Total Bilirubin 0.7 AST 22 ALT 7 Alkaline Phosphatase 61 Total Protein 6.8 Albumin 3.6 Globulin 3.2 Albumin/Globulin Ratio 1.1 Urine Color Yellow Urine Appearance Clear Urine pH 5.5 Ur Specific [place] 1.010 Urine Protein Negative Urine Glucose (UA) Negative Urine Ketones Negative Urine Occult Blood 2+ H Urine Nitrate Negative Urine Bilirubin Negative Urine Urobilinogen 0.2 Ur Leukocyte Esterase Negative Urine RBC 1-5/hpf Urine WBC 1-5/hpf Ur Squamous Epith Cells 1-5 /hpf Urine Bacteria Moderate (10-30) H Ur Culture Indicated? Specimen cultured PFS Medical History Diabetes Diverticulosis HLD (hyperlipidemia) HTN (hypertension) Insomnia Osteoarthritis Surgical History History of bladder surgery History of colon resection (~2013) Hx of appendectomy Hx of bilateral cataract extraction (07/2020) Hx of cholecystectomy Social History household members: spouse Smoking Status: Never smoker alcohol intake: never Discharge Assessment & Plan Assessment and Plan Assessment: Patient stable. Patient progressing as expected status post right total knee arthroplasty. Plan of Treatment: Weight-bearing as tolerated right lower extremity. Aspirin 81 mg b.i.d. for 6 weeks. UA culture pending. We will contact patient regarding results. She will mobilize with physical therapy later this morning and be discharged home in stable condition. Discharge Plan Discharge Plan Patient Disposition: Home Provider Discharge Comment: DC home today after PT Discharge orders & Medications Prescriptions: New acetaminophen 325 mg Tablet 650 mg PO TID Qty: 60 RF: 0 hydrocodone-acetaminophen 10-325 mg Tablet 1 tab PO Q4HR PRN (Reason: Pain, Moderate (4-6)) Qty: 60 RF: 0 aspirin 81 mg Tablet,Delayed Release (Dr/Ec) 81 mg PO BID Qty: 60 RF: 0 Continued pioglitazone [Actos] 15 mg Tablet 15 mg PO BID RF: 0 atorvastatin [Lipitor] 20 mg Tablet 20 mg PO BEDTIME RF: 0 metoprolol tartrate 100 mg Tablet 100 mg PO DAILY RF: 0 lisinopril 5 mg Tablet 5 mg PO DAILY RF: 0 Premarin 1.25 mg Tablet 1.25 mg PO DAILY RF: 0 polyethylene glycol 3350 [Miralax] 17 gram Powder In Packet 17 g PO DAILY PRN (Reason: Constipation) RF: 0 Discontinued aspirin 81 mg Tablet 162 mg PO DAILY RF: 0 Follow up/Referrals: Rao Alexander MD [Primary Care Provider] - Too Otoole MD [Physician] - (2 weeks) Diet/Activity/Treatments Diet: Carb-consistent/Diabetic Activity: WBAT Cold/Heat Therapy: ice to knee as needed Skin/Wound/Dressing Care Report to your healthcare provider any signs of infection, such as:: chills, fever, increased pain and unusual drainage Dressing: keep clean and dry Visit Report/Discharge Packet Instructions: DI for Knee Replacement, DI for Prescription Opioid Use Stand Alone Forms: Surgery Discharge Discharge Data Primary Care Provider: Rao Alexander Attending Provider: Too Otoole
[2020-09-09] MEDS: lisinopriL 5 MG TABLET PO (10:01)
[2020-09-09] MEDS: METOPROLOL IR 50 MG TABLET 100 MG PO (10:04)
[2020-09-09] MEDS: DOCUSATE 100 MG CAPSULE PO (10:04)
[2020-09-09] MEDS: ACETAMINOPHEN 325 MG TABLET 650 MG PO (10:04)
[2020-09-09] MEDS: SODIUM CHLORIDE 0.9% FLUSH 10 ML IV (10:05)
[2020-09-09] MEDS: ASPIRIN EC 81 MG TABLET PO (10:05)
[2020-09-09] MEDS: ESTROGENS, CONJUGATED 0.625 MG TABLET 1.25 MG PO (10:06)
--- NOTE | 2020-09-09 10:16 | PT.IPTN ---
Current Diagnoses Unilateral primary osteoarthritis, right knee (09/08/20) Surgery Performed Operation Date: 09/07/20 07:45 Actual Procedures p Total Knee Arthroplasty(Right) - Too Otoole MD Physical Therapy Treatment Note M2 PT-IP Current Condition Start: 09/07/20 11:21 Freq: NEEDED Status: Active Protocol: Document 09/07/20 15:38 AW (Rec: 09/07/20 16:26 AW [id number]) Physical Therapy Current Condition Current Condition Evaluation Date 09/07/20 Treatment Diagnosis R TKA; difficulty in walking Weight Bearing Status Weight Bearing Status Weight Bear as Tolerated M3 PT-IP Subjective Start: 09/07/20 11:21 Freq: NEEDED Status: Active Protocol: Document 09/09/20 09:12 LJ (Rec: 09/09/20 10:16 LJ [id number]) Subjective Physical Therapy Visit Type Type Treatment Note Visit Start Time 09:12 Visit Stop Time 09:38 Total Visit Minutes 26 Number of MEMBER SERVICES REPRESENTATIVE Visits 3 Physical Therapy Visit Comments Patient Comments willing to attempt stair trial Therapy Pain Assessment Pain When Pain Assessed During Mobility Pain Present Pain Present Pain Reported M4 PT-IP Mobility and Gait Start: 09/07/20 11:21 Freq: NEEDED Status: Active Protocol: Document 09/09/20 09:12 LJ (Rec: 09/09/20 10:16 LJ [id number]) PT-Bed Mobility Assessment Sit to Supine Sit to Supine Minimal Assistance Scooting Scooting to Edge of Bed Standby Assistance Scooting Up and Down in Bed Standby Assistance PT-Transfer Assessment Sit to and From Stand Sit to and from Stand Contact Guard Assistance,Use of Upper Extremities Equipment Transfer Assistive Device Gait Belt,Front Wheeled Walker Transfers Transfer Destination Bed,Wheelchair Transfer Technique Stand Step Pivot Transfer Ability Level of Assist Contact Guard Assistance,1 Person Assistance,Use of Upper Extremities Comments Mobility Comments pt in process of returning to bed with CLIENT SUCCESS MANAGER. Willing to work with PT. pt stood using FWW with cues for hand position. [id number] to WC which was beside the bed. Wheeled to stairs. After trialing stairs , pt stood from WCpushing up with right hand from WC and hanging onto FWW with left. WC was located just outside room . pt ambulated to bed CGA using FWW. She was able to position herself into bed with assist for lifting RLE into bed. pt able to scoot and center herself bridging with LLE. See gait and stair section for details Gait Assessment Gait Gait Assistance Required: Contact Guard Assist,1 Person Assist Distance (Feet) 30 Able to Maintain Weight Bearing Status Yes During Gait Assistive Devices Assistive Device Gait Belt,Front Wheeled Walker Orthotic/Prosthetic Devices or Brace: No Gait Deviations General Gait Pattern Antalgic,Decreased Stride Length,Decreased Feet Clearance,Flexed Trunk,Step-to Gait,Wide Based Gait Factors Limiting Gait Function Factors Limiting Gait Function Decreased Activity Tolerance, Decreased Sensation,Decreased Strength,Difficulty Following Directions,Limited Range of Motion,Pain,Poor Balance,Poor Safety Awareness Comments Gait Comments Pt ambulated from to stairs approx 5 feet using FWW using step-to pattern. Pt went up and down stairs then returned to with step-to pattern again using FWW. Pt was then wheeled to hallway just outside room and ambulated to far side of bed ~25' with FWW using step-through pattern this time. Cued to keep walker closer to her body and stand taller. Pt returned to bed. See mobility comments Stair Climbing Assessment Evaluation Level of Assist On Stairs Contact Guard Assistance,1 Person Assistance Devices Stair Climbing Assistive Devices Straight Cane,Left Railing, Right Railing Technique/Endurance Stair Climbing Direction Ascend and Descend Stair Climbing Technique Step to Step Number of Steps Climbed 3 Stair Climbing Set # Repetitions (reps) 1 Comments Stair Climbing Comments Pt initially confused with which hand to hold cane in upon ascending stairs. used cane in right hand and rail in left hand. Pt able to climb stairs with cueing to go up with LLE and descend with LLE. Upon descending stairs pt initially confused with which leg to step down with despite being cued. first step she held onto railing with right hand with cane in left hand and stepped down with RLE. Second step pt cued to advance RLE to step but she stepped down with LLE instead. When reminded to use RLE to go down step pt stated that's what she already did. Third step pt advanced RLE first and descended step as cued. She returned to and was wheeled to room. See gait comments M5 PT-IP Objective Assessments Start: 09/07/20 11:21 Freq: NEEDED Status: Active Protocol: Document 12/28/20 15:38 AW (Rec: 09/07/20 16:34 AW [id number]) Orientation Orientation/Cognition Level of Alertness Alert Orientation Name,Day of Week,Place, Situation Safety Awareness Decreased Safety Awareness Memory Description No Deficits Noted Gross Range of Motion Lower Extremity ROM Assessment Right Impaired Strength Lower Extremity Strength Assessment Right Impaired Coordination Assessment Gross Coordination Gross Coordination WNL Sensation Assessment Sensation Gross Sensation WNL Muscle Tone Muscle Tone WNL Yes M6 PT-IP Treatment Start: 09/07/20 11:21 Freq: NEEDED Status: Active Protocol: Document 09/09/20 09:12 LJ (Rec: 09/09/20 10:16 LJ [id number]) Physical Therapy Treatment Other Treatments Other Treatment Performed education on use of FWW M7 PT-IP Assessment and Plan Start: 09/07/20 11:21 Freq: NEEDED Status: Active Protocol: Document 09/09/20 09:12 LJ (Rec: 09/09/20 10:16 LJ [id number]) PT Summary Assessment and Plan Potential Rehabilitation Potential Good Summary Impairments Pain,ROM,Strength,Balance, Coordination,Bed Mobility, Transfers,Gait,Activity Tolerance Progress Towards Goals Progressing Toward Goals Assessment Summary Pt making progress with pain control and ambulation. States she has FWW, 4 SPCs, 4WW, and WC at home so she does not need any equipment at SD. Pt demonstrates some impulsivity and lack of following directions and/or understanding them. This session she was able to ambulate a greater distance but stated she didn't want to go farther. She is capable of bed mobility with the exception of lifting her rle into the bed. Recommend that she use a FWW rather than SPC or 4WW for the time being. next tretment assess use of platform step to simulate getting into bed at home. CGT moved to 1400 today. Goals Bed Mobility Goal Standby Assistance Transfer Goal Standby Assistance,Front Wheeled Walker Gait Goal Standby Assistance,Front Wheel Walker Gait Distance 100 Other Goals - up/down 2 steps with unilateral rail CGA Days to Meet Goals 4 Frequency of Treatment Frequency Of Treatment Twice a Day Treatment Plan Physical Therapy Treatment Plan Bed Mobility Training,Transfer Training,Gait Training, Therapeutic Exercise,Balance Retraining,Post Op Education, Discharge Planning,Hot or Cold Pack Other Recommendations and Next Treatment Ther ex, bed mobility, sit- Focus stand, advance gait and stair training when able. , Fady 1400 CG training. Recommendations To Nursing Amount of Assist Needed 1 Person Assist Discharge Recommendations PT Discharge Recommendations Home with Assistance, Outpatient PT Transportation Needs at Discharge Private Vehicle 1
--- NOTE | 2020-09-09 12:02 | PC.NURSE ---
Discharge instructions and home care handouts reviewed with patient and her , they state understanding and have no further questions or concerns at this time. Prescriptions sent in electronically by physician. Aquacel with eric wrap remains CDI. Follow up appointment previously scheduled for Sep 18 at 3pm. Patient instructed to call surgeons office with questions or concerns.
--- NOTE | 2020-09-09 13:54 | PT.IPTN ---
Current Diagnoses Unilateral primary osteoarthritis, right knee (09/08/20) Surgery Performed Operation Date: 09/07/20 07:45 Actual Procedures p Total Knee Arthroplasty(Right) - Too Otoole MD Physical Therapy Treatment Note M2 PT-IP Current Condition Start: 09/07/20 11:21 Freq: NEEDED Status: Discharge Protocol: Document 09/07/20 15:38 AW (Rec: 09/07/20 16:26 AW [id number]) Physical Therapy Current Condition Current Condition Evaluation Date 09/07/20 Treatment Diagnosis R TKA; difficulty in walking Weight Bearing Status Weight Bearing Status Weight Bear as Tolerated M3 PT-IP Subjective Start: 09/07/20 11:21 Freq: NEEDED Status: Discharge Protocol: Document 09/09/20 13:34 SP (Rec: 09/09/20 17:22 SP [id number]) Subjective Physical Therapy Visit Type Type Treatment Note Visit Start Time 13:34 Visit Stop Time 13:54 Total Visit Minutes 20 Notes presented and complete caregiver training and provided all assist needed throughout tx. Number of ANIMAL SHELTER SUPERVISOR Visits 4 Physical Therapy Visit Comments Patient Comments Pt will to work with therapy. Patient Goals To return home with her to assist her today. Therapy Pain Assessment Pain When Pain Assessed During Mobility Pain Present Pain Present Pain Reported Location r knee Intensity 5 Scale Used Numeric (0 - 10) Description Acute,With Movement Pain Behaviors Facial Grimacing,Guarding, Moaning,Restlessness Pain Management Techniques Re-positioning,Timing of Activity with Medications M4 PT-IP Mobility and Gait Start: 09/07/20 11:21 Freq: NEEDED Status: Discharge Protocol: Document 09/09/20 13:34 SP (Rec: 09/09/20 17:22 SP [id number]) PT-Transfer Assessment Sit to and From Stand Sit to and from Stand Contact Guard Assistance,1 Person Assistance,Use of Upper Extremities Equipment Transfer Assistive Device Gait Belt,Front Wheeled Walker Orthotic/Prosthetic Devices or Brace: No Transfers Transfer Destination Wheelchair Transfer Technique ambulated using FWW Transfer Ability Level of Assist Contact Guard Assistance,1 Person Assistance,Use of Upper Extremities Comments Mobility Comments Pt was seated on bench in room with RLE elevated on bench and FWW positioned in front of pt when arrived, sitting in pt's chair, no call light in reach when arrived. Instructed on donning gait belt with good application. Pt sit> stand CGA , wide base gait with RLE out to side intially but improved underneath and knee flexion heel toe gait with cuing bench to bed then demonstrated step up 1 6 step to assimulate getting into high bed CGA by step forward up holding onto bed, fWW then pivot around to sit then using SPC and 1 foot on step to guide self down to stand with fWW. Pt ambulated approx 20 ft using FWW CGA bed to w/c in hallway then with cuing by pivot and back up to w /c with good reaching back for slow descent. ANIMAL SHELTER SUPERVISOR wheeled patient to stairs. sit> stand CGA, walked 3 feet to stairs CGA using FWW, ascend/ descend 3 stairs step to patterning L HR and SPC in RUE as does at home, CGA by with cuing for proper patterning lead LLE up/ RLE down, pt tends to lead down LLE causing pain in R knee. SPT using FWW sat in w/c. Pt remaintain in w/c when returned to room to prep for DC. ANIMAL SHELTER SUPERVISOR notified nurse patient requested stay in w/c and ok to return home with to assist her when medically cleared and outpt set up already. Pt had call light and all needs in reach, in room before left. Gait Assessment Gait Gait Assistance Required: Contact Guard Assist,1 Person Assist Distance (Feet) 20 Able to Maintain Weight Bearing Status Yes During Gait Assistive Devices Assistive Device Gait Belt,Front Wheeled Walker Orthotic/Prosthetic Devices or Brace: No Gait Deviations General Gait Pattern Antalgic,Decreased Stride Length,Decreased Feet Clearance,Flexed Trunk,Step-to Gait,Wide Based Gait Factors Limiting Gait Function Factors Limiting Gait Function Decreased Activity Tolerance, Decreased Sensation,Decreased Strength,Difficulty Following Directions,Limited Range of Motion,Pain,Poor Balance,Poor Safety Awareness Comments Gait Comments See mobility comments for details. Stair Climbing Assessment Evaluation Level of Assist On Stairs Contact Guard Assistance,1 Person Assistance Devices Stair Climbing Assistive Devices Straight Cane,Left Railing Technique/Endurance Stair Climbing Direction Ascend and Descend Stair Climbing Technique Step to Step Number of Steps Climbed 3 Stair Climbing Set # Repetitions (reps) 1 Comments Stair Climbing Comments Pt required occasional cuing for proper LE patterning. See mobility comments for more details. PT-Balance Assessment Sitting Balance and Reactions Static Sitting Balance Ability Normal Dynamic Sitting Balance Ability Good Standing Balance and Reactions Static Standing Balance Ability Good Dynamic Standing Balance Ability Fair Device Used FWW M5 PT-IP Objective Assessments Start: 09/07/20 11:21 Freq: NEEDED Status: Discharge Protocol: Document 09/07/20 15:38 AW (Rec: 09/07/20 16:34 AW [id number]) Orientation Orientation/Cognition Level of Alertness Alert Orientation Name,Day of Week,Place, Situation Safety Awareness Decreased Safety Awareness Memory Description No Deficits Noted Gross Range of Motion Lower Extremity ROM Assessment Right Impaired Strength Lower Extremity Strength Assessment Right Impaired Coordination Assessment Gross Coordination Gross Coordination WNL Sensation Assessment Sensation Gross Sensation WNL Muscle Tone Muscle Tone WNL Yes M6 PT-IP Treatment Start: 09/07/20 11:21 Freq: NEEDED Status: Discharge Protocol: Document 09/09/20 13:34 SP (Rec: 09/09/20 17:22 SP [id number]) Physical Therapy Treatment Education Education Provided Precautions,Weight Bearing Status,Post-Op Packet,Safety M7 PT-IP Assessment and Plan Start: 09/07/20 11:21 Freq: NEEDED Status: Discharge Protocol: Document 09/09/20 13:34 SP (Rec: 09/09/20 17:22 SP [id number]) PT Summary Assessment and Plan Potential Rehabilitation Potential Good Status of Condition at Evaluation Evolving Summary Impairments Pain,ROM,Strength,Balance, Coordination,Bed Mobility, Transfers,Gait,Activity Tolerance Progress Towards Goals Progressing Toward Goals,Slow Progress due to Activity Tolerance Assessment Summary Pt making progress with pain control, transfers, bed mobility and gait CGA using FWW assist provided by . Pt is ok to return home with to assist her when medically stable. Outpt therapy set up. Goals Bed Mobility Goal Standby Assistance Transfer Goal Standby Assistance,Front Wheeled Walker Gait Goal Standby Assistance,Front Wheel Walker Gait Distance 100 Other Goals - up/down 2 steps with unilateral rail CGA, 1- 6 step at bedside no rails. Days to Meet Goals 4 Frequency of Treatment Frequency Of Treatment Twice a Day Treatment Plan Physical Therapy Treatment Plan Bed Mobility Training,Transfer Training,Gait Training, Therapeutic Exercise,Balance Retraining,Post Op Education, Discharge Planning,Hot or Cold Pack Other Recommendations and Next Treatment Ther ex, bed mobility, sit- Focus stand, advance stance gait. Recommendations To Nursing Amount of Assist Needed 1 Person Assist Discharge Recommendations PT Discharge Recommendations Home with Assistance, Outpatient PT Transportation Needs at Discharge Private Vehicle
--- NOTE | 2020-09-09 14:10 | PC.NURSE ---
Discharge instructions and home care handouts reviewed with patient and her , they have no further questions or concerns at this time. Dressing remains CDI. Patient clear by PT, and completed caregiver training with today as well. Prescriptions available for pickup driver, sent electronically by physician. IV removed intact. Patient escorted out via wheelchair with all belongings to be discharged to home with her . Patient has follow up appt. scheduled. Instructed to call surgeon with questions or concerns
--- NOTE | 2020-09-09 15:47 | CM.DPC ---
DCP Discharge Home Per Ortho PA, pt medically stable to d/c home today and no identified barriers to discharge. Per PT, recommending home with assist and outpt PT. Spouse was available for CG training and did well this morning. Per RN, completed d/c instructions with pt and spouse and no concerns or needs. Plan: Patient to d/c home via spouse POV today and no identified SW needs at this time. YANETH Vidales
== END 2020-09-09 14:16 | disposition home or self-care (01) ==
LOC: OR 14:59 → AC 14:59
PROVIDERS: Physician Assistant Surgical; Admitting Provider Orthopaedic Surgery Adult Reconstructive Orthopaedic Surgery; PCP Family Medicine; Referring Provider Family Medicine; Visit Provider Orthopaedic Surgery Adult Reconstructive Orthopaedic Surgery
PROC: 0SRC0JZ Replacement of Right Knee Joint with Synthetic Substitute, Open Approach (ICD-10-PCS; CPT 27447; principal; 2020-09-07 07:45)
DX: M17.11 Unilateral primary osteoarthritis, right knee (principal); I10 Essential (primary) hypertension; E11.9 Type 2 diabetes mellitus without complications; N18.9 Chronic kidney disease, unspecified; E66.9 Obesity, unspecified; Z68.35 Body mass index [BMI] 35.0-35.9, adult
CPT/HCPCS: 27447; 36415; 73560; 80053; 81001; 82962; 85014; 85018; 85025; 87086; 97110; 97116; 97161; 97530; C1776; G0378; J0690; J1885; J2270; J2274; J2405; J2704; J2765; J2795

== ENCOUNTER → 2021-02-23 14:21 | Outpatient (CLI) | payer MEDICARE, OTHER, SELFPAY ==
[2020-09-07 11:33] VITALS: BMI 38.8
--- NOTE | 2021-02-23 14:24 | DI.RAD.S_ITS ---
PROCEDURE: XR KNEE LT 3V INDICATIONS: KNEE PAIN TECHNIQUE: 3 views of the knee were acquired. COMPARISON: [facility], CR, XR KNEE RT 1TO2V, 09/07/2020, 10:14. [facility], CR, XR KNEE RT 3V, 07/01/2020, 16:10. FINDINGS: Bones: No fractures or dislocations. No suspicious bony lesions. Soft tissues: No joint effusion. No suspicious soft tissue calcifications. IMPRESSION: Moderate osteoarthritis at the patellofemoral joint, mild osteoarthritic joint space narrowing at the medial compartment of the left knee. Dictated by: Barry Simpson M.D. on 02/23/2021 at 15:36 Approved by: Barry Simpson M.D. on 02/23/2021 at 15:37
== END ==
PROVIDERS: PCP Family Medicine; Referring Provider Family Medicine; Visit Provider Family Medicine
DX: M17.12 Unilateral primary osteoarthritis, left knee (principal)
CPT/HCPCS: 73562

== ENCOUNTER → 2024-02-26 14:44 | Outpatient (CLI) | payer MEDICARE, OTHER, SELFPAY ==
[2020-09-07 11:33] VITALS: BMI 38.8
--- NOTE | 2024-02-26 14:48 | DI.US.S_ITS ---
PROCEDURE: US PERIPH VENOUS LOW EXTREM RT INDICATIONS: Right knee swelling TECHNIQUE: Real-time imaging, as well as color and pulse Doppler interrogation, were performed of the lower extremity deep veins from the inguinal ligament to the popliteal fossa, with documentation of the visualized calf veins. COMPARISON: None. FINDINGS: The common femoral, femoral, popliteal, and the visualized calf veins are normally compressible, and free of intraluminal thrombus. Color and pulse Doppler demonstrate normal phasic intraluminal flow. There is normal augmentation response to distal compression maneuver. IMPRESSION: No findings of lower extremity deep venous thrombosis. Dictated by: Mara Tidwell M.D. on 02/26/2024 at 16:41 Approved by: Mara Tidwell M.D. on 02/26/2024 at 16:42
== END ==
PROVIDERS: PCP Family Medicine; Referring Provider Orthopaedic Surgery; Visit Provider Orthopaedic Surgery
DX: M25.561 Pain in right knee (principal)
CPT/HCPCS: 93971

== ENCOUNTER → 2024-07-15 15:16 | Outpatient (CLI) | payer MEDICARE, OTHER, SELFPAY ==
[2020-09-07 11:33] VITALS: BMI 38.8
== END ==
PROVIDERS: Visit Provider Urology
DX: R33.9 Retention of urine, unspecified (principal); R39.89 Other symptoms and signs involving the genitourinary system; R82.81 Pyuria; R31.29 Other microscopic hematuria
CPT/HCPCS: 87077; 87086; 87186

== ENCOUNTER → 2024-08-07 14:44 | Outpatient (CLI) | payer MEDICARE, OTHER, SELFPAY ==
[2020-09-07 11:33] VITALS: BMI 38.8
== END ==
PROVIDERS: Visit Provider Urology
DX: R33.9 Retention of urine, unspecified (principal)
CPT/HCPCS: 87086

== ENCOUNTER 2024-08-12 11:58 | Emergency (ER) | payer MEDICARE, OTHER, SELFPAY ==
[2020-09-07 11:33] VITALS: BMI 38.8
[2024-08-12] VITALS (16 sets, daily range): BP systolic 144–211; BP diastolic 67–103; PULSE 54–65; RESP 18; TEMP 37.1; O2SAT 94–98; BMI 36.0
[2024-08-12 14:02] LABS: Urine Volume 10mL (spun)
[2024-08-12 14:06] LABS: Bacteria Urine Moderate (10-30); Culture Indicated Urine Specimen Cultured; RBC Urine 1-5/HPF (0-5/HPF); Squamous Epithelial Cell Urine None Seen (0-5/HPF); WBC Urine None Seen (0-5/HPF)
--- NOTE | 2024-08-12 14:55 | ED.BACK ---
HPI - Back Pain/Injury General Chief Complaint: Back Pain/Injury Stated Complaint: back and rt leg px Time Seen by Provider: 08/12/24 14:52 Source: patient and family Mode of arrival: Family Vehicle Limitations: no limitations History of Present Illness HPI Narrative: 79-year-old female history of hypertension, dyslipidemia, diabetes, chronic back pain on aspirin 81 mg daily who presents with complaint right knee as well as right back pain radiating down her leg but also concern for abdominal pain of a mass in her abdomen. Patient denies any fevers or chills. No nausea or vomiting. She denies any new dysuria urgency or frequency. She did just see Urology several days ago for cystoscopy. States she was supposed to be started on oral antibiotics but was not. She denies any incontinence or new bowel incontinence. States she has had about 5 months of pain that radiates from her knee up to her lower back. It is worse with movement or when she tries to get out of bed. If she lays flat her pain is well controlled. She states she has been taking hydrocodone up to 4 tablets daily to control her pain. She had an MRI of her L-spine on 08/03/2024 which did show some changes. Please note this in the MDM. This was performed at [facility]. Patient notes that she has had no prior back surgeries. She has had a prior large mass removed for her abdomen and partial colectomy many years ago. States prior appendectomy, cholecystectomy, bladder lift and right knee surgery with Dr. Otoole states she has had chronic issues since. She states she was allergic to sulfa. No tobacco, alcohol or recreational drugs. She was accompanied by her . She sees Dr. Vesta Francois as her current orthopedic surgeon. Related Data Home Medications Medication Instructions Recorded Confirmed atorvastatin 20 mg tablet (Lipitor) 20 mg PO BEDTIME 09/02/20 08/07/24 conjugated estrogens 1.25 mg 1.25 mg PO DAILY 09/02/20 08/07/24 tablet (Premarin) metoprolol tartrate 100 mg tablet 100 mg PO DAILY 09/02/20 08/07/24 polyethylene glycol 3350 17 gram 17 g PO DAILY PRN Constipation 09/07/20 08/07/24 oral powder packet (Miralax) pioglitazone 15 mg tablet (Actos) 30 mg PO BID 07/15/24 08/07/24 zolpidem 5 mg tablet (Ambien) 5 mg PO BEDTIME 07/15/24 08/07/24 Previous Rx's Medication Instructions Recorded acetaminophen 325 mg tablet 650 mg (2 x 325 mg) PO TID #60 tabs 09/09/20 aspirin 81 mg tablet,delayed 81 mg PO BID #60 tabs 09/09/20 release hydrocodone 10 mg-acetaminophen 1 tab PO Q4HR PRN Pain, Moderate 09/09/20 325 mg tablet (4-6) #60 tabs ciprofloxacin HCl 250 mg tablet 250 mg PO BID #6 tabs 07/19/24 nitrofurantoin 100 mg PO BID #30 caps 07/19/24 monohydrate/macrocrystals 100 mg capsule ciprofloxacin HCl 500 mg tablet 500 mg PO Q12H #20 tabs 08/12/24 oxycodone 5 mg tablet 5 mg PO QID PRN pain #14 tabs 08/12/24 tamsulosin 0.4 mg capsule 0.4 mg PO BEDTIME #30 caps 08/12/24 Allergies Allergy/AdvReac Type Severity Reaction Status Date / Time Sulfa (Sulfonamide Allergy Severe Anaphylaxis Verified 08/07/24 15:46 Antibiotics) Review of Systems Review of Systems ROS Unobtainable: All systems reviewed & are unremarkable except as noted in HPI and below Patient History Medical History Delayed menopause Constipation Pneumaturia Incomplete emptying of bladder Osteoarthritis Insomnia Diverticulosis HLD (hyperlipidemia) Diabetes HTN (hypertension) Surgical History History of partial surgical removal of colon Hx of bilateral cataract extraction (07/2020) Hx of appendectomy Hx of cholecystectomy History of colon resection (~2013) History of bladder surgery Family History Other Anomaly of ear with impairment of hearing Diabetes mellitus Hyperlipidemia Hypertension Social History marital status: number of children: 3 household members: spouse Smoking Status: Never smoker alcohol intake: never caffeine: No Type(s) of exercise: regular exercise frequency: 1-2 times per week duration: 15-30 minutes/day Smoking Status: Never smoker Substance Use Type: does not use Exam Narrative Exam Narrative: GENERAL: Alert and oriented x three, obese female in mild distress. HEENT: Head normocephalic, atraumatic, EOMI, pupils reactive, face symmetric, moist mucous membranes NECK: Supple, full range of motion CARDIOVASCULAR: Regular rate and rhythm without murmurs, rubs or gallops. RESPIRATORY: Breath sounds equal bilaterally, no wheezes rales or rhonchi. ABDOMEN: Soft, nontender. Normoactive bowel sounds all 4 quadrants. No guarding or rebound, rigidity, no mass : No CVA tenderness EXTREMITIES: Patient has not increased pain with right leg lift, nontender on examination throughout her right lower extremity. No edema bilateral lower extremities. Neurovascularly intact. NEUROLOGICAL: Cranial nerves II through XII grossly intact. Moving all extremities SKIN: Warm, dry, no petechiae, no rashes or lesions. Initial Vital Signs Initial Vital Signs: Vital Signs Temperature 98.7 F 08/12/24 12:15 Respiratory Rate 18 08/12/24 12:15 Blood Pressure 186/103 H 08/12/24 12:15 Course Orders Ordered: Discontinued Medications Ciprofloxacin (Ciprofloxacin 250 Mg Tablet) 500 mg PO NOW ONE Stop: 08/12/24 17:04 Last Admin: 08/12/24 17:24 Dose: 500 mg Documented By: TC Morphine Sulfate (Morphine 4 Mg/Ml Inj) 4 mg IV NOW ONE Stop: 08/12/24 15:16 Last Admin: 08/12/24 15:28 Dose: 4 mg Documented By: TC Morphine Sulfate (Morphine 4 Mg/Ml Inj) 4 mg IV NOW ONE Stop: 08/12/24 17:03 Last Admin: 08/12/24 17:24 Dose: 4 mg Documented By: TC Vital Signs Vital signs: Vital Signs - 8 hr 08/12/24 12:15 08/12/24 13:51 08/12/24 13:52 Temperature 98.7 F Pulse Rate 59 L Respiratory Rate 18 Blood Pressure 186/103 H 200/91 H Pulse Oximetry 98 08/12/24 13:52 08/12/24 14:00 08/12/24 14:00 Temperature Pulse Rate 57 L 54 L Respiratory Rate Blood Pressure 184/68 H Pulse Oximetry 98 98 08/12/24 14:30 08/12/24 14:30 08/12/24 15:00 Temperature Pulse Rate 56 L 58 L Respiratory Rate Blood Pressure 166/74 H Pulse Oximetry 94 97 08/12/24 15:00 08/12/24 15:30 08/12/24 15:30 Temperature Pulse Rate 57 L Respiratory Rate Blood Pressure 192/83 H 211/91 H Pulse Oximetry 98 08/12/24 16:14 08/12/24 16:15 08/12/24 16:15 Temperature Pulse Rate 65 63 Respiratory Rate Blood Pressure 202/87 H Pulse Oximetry 95 97 08/12/24 16:30 08/12/24 16:30 08/12/24 17:28 Temperature Pulse Rate 56 L Respiratory Rate 18 Blood Pressure 186/79 H Pulse Oximetry 97 98 08/12/24 17:29 08/12/24 17:29 08/12/24 17:30 Temperature Pulse Rate 58 L 58 L Respiratory Rate Blood Pressure 144/67 H Pulse Oximetry 95 95 08/12/24 17:30 08/12/24 17:40 08/12/24 17:40 Temperature Pulse Rate 54 L Respiratory Rate Blood Pressure 200/83 H 187/76 H Pulse Oximetry 96 08/12/24 18:00 08/12/24 18:01 08/12/24 18:01 Temperature Pulse Rate 56 L 56 L Respiratory Rate 18 Blood Pressure 170/68 H Pulse Oximetry 96 96 MDM - Back Pain/Injury Lab Data 08/12/24 16:18 08/12/24 16:18 Labs: Lab Results 08/12/24 08/12/24 Range/Units 13:50 16:18 WBC 4.4 L (4.5-11.0) X10^3/uL RBC 4.16 (4.0-5.2) X10^6/uL Hgb 13.3 (12.0-16.0) g/dL Hct 39.8 (36-46) % MCV 95.7 (80-100) fL MCH 31.9 (26-34) PG MCHC 33.4 (30-36) % RDW 15.2 H (11.6-14.8) % Plt Count 190 (150-400) X10^3/uL Neut % (Auto) 50.6 (50-75) % Lymph % (Auto) 38.3 (25-40) % [place] % (Auto) 7.8 (3-14) % Eos % (Auto) 2.6 (2-4) % Baso % (Auto) 0.7 (0-2) % Neut # (Auto) 2200 (9325-5107) /uL Lymph # (Auto) 1700 (6007-7816) /uL [place] # (Auto) 300 (0-900) /uL Eos # (Auto) 100 (0-450) /uL Baso # (Auto) 0 (0-100) /uL Sodium 134 L (137-145) mmol/L Potassium 4.1 (3.4-5.1) mmol/L Chloride 102 (98-107) mmol/L Carbon Dioxide 26 (22-32) mmol/L BUN 14 (7-17) mg/dL Creatinine 1.08 H (0.52-1.04) mg/dL Estimated GFR 52 L (>60) mL/min BUN/Creatinine Ratio 13.0 (6-22) Glucose 98 (80-110) mg/dL Calcium 9.0 (8.4-10.2) mg/dL Total Bilirubin 0.7 (0.2-1.3) mg/dL AST 28 (14-36) IU/L ALT 12 (<35) IU/L Alkaline Phosphatase 72 (38-126) U/L Total Protein 7.2 (6.3-8.2) g/dL Albumin 3.9 (3.5-5.0) g/dL Globulin 3.3 (1.7-4.1) g/dL Albumin/Globulin Ratio 1.2 (1.0-2.8) Lipase 81 (23-300) U/L Urine RBC 1-5/hpf (0-5/HPF) Urine WBC None seen (0-5/HPF) Ur Squamous Epith Cells None seen (0-5/HPF) Urine Bacteria Moderate (10-30) H (None) Ur Culture Indicated? Specimen cultured Vol Urine Centrifuged 10ml (spun) Urine Dip Bedside Urine Glucose Negative Bedside Urine Bilirubin - Negative Bedside Urine Ketone - Negative Urine Specific [place] 1.020 Bedside Urine Occult Blood ++ Bedside Urine pH 6.0 Bedside Urine Protein - Negative Bedside Urine Urobilinogen - Negative Bedside Urine Nitrite - Negative Bedside Urine Leukocytes - Negative Esterase MDM Narrative Medical decision making narrative: Patient presents with a disc from a L-spine MRI, was able to open of the exam report shows multilevel underlying facet arthropathy with canal stenosis moderate at L2-L1 and severe at L2-L3 and moderate at L3-L4, multilevel foraminal narrowing as described above. Patient's symptoms seemed to be mostly related to her chronic right knee pain acute on chronic low back pain. She has been following with the orthopedic surgery her primary care physician order MRIs and outpatient which was obtained in the last week. This was reviewed by myself. Patient does not have any red flag symptoms requiring emergent transfer for Neurosurgery. She does have concern about a mass in her abdomen she has not particularly tender on exam but does describe some intermittent suprapubic pain although she had recent cystoscopy urine shows potential for infection. We will obtain imaging and labs to rule out any sort of perforation although patient's abdominal exam makes this less likely. Pyelonephritis would be potentially on differential as well. Labs white count of 4.4 hemoglobin of 13 platelets of 190, sodium 134 electrolytes are otherwise appropriate creatinine is 1.08 fairly consistent with priors up to 2020. Glucose of [address] abdomen pelvis enlarged uterus with central hypoattenuation differentials include multiple fibroids or malignancy. Recommend pelvic ultrasound 3.4 cm left ovarian cystic lesions which appears simple could be evaluated pelvic ultrasound atypical for age. Degenerative changes lumbar spine without acute bony abnormality. Point of care urine positive for blood negative for leuks or nitrates. 1-5 RBCs no white cells no squamous moderate bacteria specimen was cultured. Patient given a dose of pain medication here in the department. She was found this helpful. She has been up in the room and moving much better here in the department. Reviewed with the patient she did mention that she has had some vaginal bleeding persistently throughout her life. She has follow up with Dr. Vega with gynecology upcoming. Discussed we will obtain pelvic ultrasound here to help facilitate her follow-up. We will treat for potential UTI. Patient has a what appears to be acute on chronic low back pain no red flag changes that I have appreciated on exam today she was quite painful so has some difficulty with movement but has normal muscle strength no acute paresthesias has had chronic urinary issues and follows with Urology but no new incontinence. Discussed with patient and family would recommend follow up with Orthopedic surgery. Reviewed findings with the patient and her . MRI disc was returned to the patient and her family. Discharge Plan Departure Patient Disposition: Home Clinical Impression: Acute exacerbation of chronic low back pain, Enlarged uterus, Acute UTI Activity Restrictions/Additional Instructions: Please follow up with orthopedic surgery regarding your back, your lumbar spine MRI does show areas of narrowing and you may benefit from either localize interventions with injections versus back surgery. Contacts included below. You can follow up with Dr. Francois if you prefer. Please take the disc of your MRI with you to your follow up. Your imaging does show enlargement of your uterus, pelvic ultrasound was also obtained. Sit very important that you follow up with your scheduled appointment with gynecology/Dr. Vega. Prescription for antibiotics was sent for UTI. You can take acetaminophen up to a 1000 mg every 6 hours as needed for pain, inadequate for pain you can take oxycodone 1-2 tablets every 6 hours as needed. This medication can make you sleepy do not drive, perform hazardous activities or make any major decisions while taking it. This medication will make you constipated please take a stool softener once to twice daily until stools are soft and regular. Prescription sent to [facility] in [place] Please return for fevers, new weakness, new loss of sensation, new loss of bowel or bladder control, intractable pain, persistent vomiting or other new or concerning changes. Prescriptions: New ciprofloxacin HCl 500 mg tablet 500 mg PO Q12H Qty: 20 0RF oxycodone 5 mg tablet 5 mg PO QID PRN (Reason: pain) Qty: 14 0RF No Action nitrofurantoin monohyd/m-cryst 100 mg capsule 100 mg PO BID Qty: 30 0RF Rx Instructions: must administer with a meal/food ciprofloxacin HCl 250 mg tablet 250 mg PO BID Qty: 6 0RF Rx Instructions: Take one tablet by mouth twice daily one day prior to cystoscopy, the day of cystoscopy, and the day after cystoscopy. atorvastatin [Lipitor] 20 mg Tablet 20 mg PO BEDTIME metoprolol tartrate 100 mg Tablet 100 mg PO DAILY Premarin 1.25 mg Tablet 1.25 mg PO DAILY polyethylene glycol 3350 [Miralax] 17 gram Powder In Packet 17 g PO DAILY PRN (Reason: Constipation) acetaminophen 325 mg Tablet 650 mg PO TID Qty: 60 0RF hydrocodone-acetaminophen 10-325 mg Tablet 1 tab PO Q4HR PRN (Reason: Pain, Moderate (4-6)) Qty: 60 0RF aspirin 81 mg Tablet,Delayed Release (Dr/Ec) 81 mg PO BID Qty: 60 0RF pioglitazone [Actos] 15 mg tablet 30 mg PO BID tamsulosin 0.4 mg capsule 0.4 mg PO BEDTIME Qty: 30 12RF zolpidem [Ambien] 5 mg tablet 5 mg PO BEDTIME Referrals: Zuleika Hawkins ARNP [Primary Care Provider] - Gabriela Fam MD [Physician] - Diane Vega MD [Physician] - Stand Alone Forms: Patient Portal/API/Survey
--- NOTE | 2024-08-12 15:14 | DI.CT.S_ITS ---
PROCEDURE: CT ABDOMEN PELVIS W CON INDICATIONS: acute on chronic back pain, abd pain TECHNIQUE: After the administration of intravenous contrast, axial sections acquired from the lung bases to the pubic symphysis. Coronal and sagittal reformats were performed. For radiation dose reduction, the following was used: automated exposure control, adjustment of mA and/or kV according to patient size. COMPARISON: None. FINDINGS: Image quality: Diagnostic. Lower Chest: No significant findings. ABDOMEN: Liver: No solid mass. Gallbladder: No radiopaque gallstones or wall thickening. Biliary ducts: No biliary dilation. Pancreas: No ductal dilation. Spleen: Size is within normal limits. Adrenal Glands: No adrenal nodules. Kidneys and Ureters: No hydronephrosis. No solid mass. No complex renal cystic lesion which requires follow up. Kidneys are atrophic. Stomach and Bowel: Normal colonic caliber, without significant wall thickening. Prior partial colectomy. No significant diverticular disease. Appendix not visualized. Peritoneum: No abnormal intraperitoneal fluid. No free air. Ventral Wall: No significant ventral hernia. Abdominal Nodes: No retroperitoneal or mesenteric adenopathy by size criteria. Vessels: Aorta and inferior vena cava are normal in size. PELVIS: Pelvic Organs: The uterus is enlarged. There is central hypoattenuation. 3.4 centimeter left ovarian cystic lesion which appears simple. Bladder: No bladder wall thickening, accounting for underdistention. Pelvic Nodes: No enlarged lymph nodes. Miscellaneous: No inguinal hernias are seen. Bones: No aggressive osseous abnormality. Degenerative disc disease of the lumbar spine. Suspected multilevel hemangiomas. IMPRESSION: Enlarged uterus with central hypoattenuation. Differential includes multiple fibroids or malignancy. Recommend pelvic ultrasound. 3.4 centimeter left ovarian cystic lesion which appears simple. This could be evaluated with pelvic ultrasound, as this is atypical for age and may require serial follow-up. Degenerative changes of the lumbar spine, without acute bony abnormality. Dictated by: Davion Wiggins M.D. on 08/12/2024 at 16:12 Approved by: Davion Wiggins M.D. on 08/12/2024 at 16:16
[2024-08-12] MEDS: MORPHINE 4 MG/ML INJ IV ×2 (15:28→17:24)
[2024-08-12 16:38] LABS: Add Manual Diff / Slide Review NO; Basophils Absolute Auto 0 /uL (0-100); Basophils Percent Auto 0.7 % (0-2); Eosinophils Absolute Auto 100 /uL (0-450); Eosinophils Percent Auto 2.6 % (2-4); Hematocrit 39.8 % (36-46); Hemoglobin 13.3 g/dL (12.0-16.0); Lymphocytes Absolute Auto 1700 /uL (1100-4500); Lymphocytes Percent Auto 38.3 % (25-40); Mean Corpuscular HGB Conc 33.4 % (30-36); Mean Corpuscular Hemoglobin 31.9 PG (26-34); Mean Corpuscular Volume 95.7 fL (80-100); Monocytes Absolute Auto 300 /uL (0-900); Monocytes Percent Auto 7.8 % (3-14); Neutrophils Absolute Auto 2200 /uL (1500-7000); Neutrophils Percent Auto 50.6 % (50-75); Platelet Count 190 X10^3/uL (150-400); Red Blood Cell Count 4.16 X10^6/uL (4.0-5.2); Red Cell Distribution Width 15.2 % (11.6-14.8); White Blood Cell Count 4.4 X10^3/uL (4.5-11.0)
--- NOTE | 2024-08-12 16:40 | DI.US.S_ITS ---
PROCEDURE: US PELVIC COMPLETE INDICATIONS: enlarged uterus, does still have vaginal menses TECHNIQUE: Real-time scanning was performed of the pelvic organs, with image documentation. Additional endovaginal scanning was necessary due to incomplete visualization of the adnexal and endometrial structures by transabdominal scanning. COMPARISON: [facility], CT, CT ABDOMEN PELVIS W CON, 08/12/2024, 15:54. FINDINGS: Uterus: Uterus is retroverted and normal in size at 6.8 x 8.5 x 4.2 cm. The myometrium is homogeneous. The endometrium measures 7 mm combined thickness. Bicornuate configuration of the uterus. Midline posterior intramural fibroid measures 3.0 x 2.4 x 2.6 cm. Left posterior intramural fibroid measures 1.2 x 1.1 x 1.2 cm. Ovaries: The right ovary is not well visualized. The left ovary measures 4.2 x 3.2 x 3.0 cm. The left ovary has a normal sonographic appearance. Less than 12 follicles can be seen. No adnexal masses are seen. Other: No pathologic free abdominal or pelvic fluid. IMPRESSION: 1. Bicornuate configuration of the uterus. 2. Uterine fibroids. 3. Endometrium measures up to 7 mm in thickness, which is greater than expected in the setting of postmenopausal bleeding. Recommend OBGYN follow-up for possible endometrial biopsy. Pelvic MRI with and without contrast could be performed for further evaluation if indicated clinically. Approved by: Avila Monahan M.D. on 08/12/2024 at 19:25
[2024-08-12 16:43] LABS: Alanine Aminotransferase 12 IU/L (<35); Albumin 3.9 g/dL (3.5-5.0); Albumin Globulin Ratio 1.2 (1.0-2.8); Alkaline Phosphatase 72 U/L (38-126); Aspartate Aminotransferase 28 IU/L (14-36); Bilirubin Total 0.7 mg/dL (0.2-1.3); Blood Urea Nitrogen 14 mg/dL (7-17); Carbon Dioxide 26 mmol/L (22-32); Chloride 102 mmol/L (98-107); Estimated Glomerular Filt Rate 52 mL/min (>60); Globulin 3.3 g/dL (1.7-4.1); Glucose 98 mg/dL (80-110); HEMOLYSIS 32 (0-50); Lipase 81 U/L (23-300); Potassium 4.1 mmol/L (3.4-5.1); Sodium 134 mmol/L (137-145); Total Protein 7.2 g/dL (6.3-8.2)
[2024-08-12] MEDS: CIPROFLOXACIN 250 MG TABLET 500 MG PO (17:24)
== END 2024-08-12 18:57 | disposition home or self-care (01) ==
PROVIDERS: Emergency Provider Emergency Medicine
DX: N85.2 Hypertrophy of uterus (principal); N39.0 Urinary tract infection, site not specified; M54.50 Low back pain, unspecified; E66.9 Obesity, unspecified; Z68.36 Body mass index [BMI] 36.0-36.9, adult; R19.00 Intra-abdominal and pelvic swelling, mass and lump, unspecified site
CPT/HCPCS: 74177; 76830; 76856; 80053; 81003; 81015; 83690; 85025; 87086; 96374; 96376; 99284; J2270; Q9967

== ENCOUNTER 2024-08-28 15:35 | Emergency (ER) | payer MEDICARE, OTHER, SELFPAY ==
[2020-09-07 11:33] VITALS: BMI 38.8
[2024-08-28] VITALS (12 sets, daily range): BP systolic 123–190; BP diastolic 60–77; PULSE 59–68; RESP 12–19; TEMP 36.6; O2SAT 94–100; BMI 36.6
--- NOTE | 2024-08-28 17:14 | EKG_ITS ---
[address] [address] Test Date: 2024-08-28 Pat Name: Ivet Farley Department: [facility] Room: Gender: Female [employer] Specialist: TONNY : 1945 Requested By: Order Number: [id number] Reading MD: Medardo Sarmiento Measurements Intervals [place] Rate: 60 P: 67 [place]: 176 QRS: 45 QRSD: 72 T: 81 QT: 448 QTc: 448 Interpretive Statements Normal sinus rhythm Electronically Signed On 08-29-2024 7:28:32 PST by Medardo Sarmiento
[2024-08-28 17:25] LABS: Add Manual Diff / Slide Review NO; Basophils Absolute Auto 0 /uL (0-100); Eosinophils Absolute Auto 100 /uL (0-450); Eosinophils Percent Auto 2.9 % (2-4); Hematocrit 40.4 % (36-46); Hemoglobin 13.3 g/dL (12.0-16.0); Lymphocytes Absolute Auto 1100 /uL (1100-4500); Lymphocytes Percent Auto 28.7 % (25-40); Mean Corpuscular HGB Conc 32.8 % (30-36); Mean Corpuscular Hemoglobin 31.6 PG (26-34); Mean Corpuscular Volume 96.2 fL (80-100); Monocytes Absolute Auto 400 /uL (0-900); Monocytes Percent Auto 10.8 % (3-14); Neutrophils Absolute Auto 2200 /uL (1500-7000); Neutrophils Percent Auto 56.6 % (50-75); Platelet Count 168 X10^3/uL (150-400); Red Cell Distribution Width 15.1 % (11.6-14.8); White Blood Cell Count 3.8 X10^3/uL (4.5-11.0)
[2024-08-28 17:36] LABS: Alanine Aminotransferase 13 IU/L (<35); Albumin 4.5 g/dL (3.5-5.0); Albumin Globulin Ratio 1.4 (1.0-2.8); Alkaline Phosphatase 46 U/L (38-126); Aspartate Aminotransferase 39 IU/L (14-36); Bilirubin Total 0.8 mg/dL (0.2-1.3); Blood Urea Nitrogen 24 mg/dL (7-17); Calcium 9.5 mg/dL (8.4-10.2); Carbon Dioxide 23 mmol/L (22-32); Chloride 101 mmol/L (98-107); Estimated Glomerular Filt Rate 40 mL/min (>60); Globulin 3.2 g/dL (1.7-4.1); Glucose 114 mg/dL (80-110); Lipase 74 U/L (23-300); Potassium 4.9 mmol/L (3.4-5.1); Sodium 132 mmol/L (137-145); Total Protein 7.7 g/dL (6.3-8.2)
[2024-08-28 17:37] LABS: HEMOLYSIS 119 (0-50)
--- NOTE | 2024-08-28 20:06 | PC.NURSE ---
Pt reports having regular periods every month. Last menstruation on 08/09/24 and lasts typically 2 days with light bleeding.
--- NOTE | 2024-08-28 21:17 | ED.GIBLEED ---
HPI - GI Bleed General Chief complaint: GI Bleed Stated complaint: blood in stool Time Seen by Provider: 08/28/24 17:52 Source: patient Mode of arrival: Wheelchair History of Present Illness HPI Narrative: 79-year-old female with history of hypertension, hyperlipidemia, diabetes, chronic back pain presents stating that she was had multiple episodes of bright red blood in her stool. Reports previous history of partial colectomy with Dr. Samayoa at [facility] many years ago. Denies use of blood thinners. Patient also reports generalized lower abdominal discomfort. She states that while she was in the waiting room she had another episode of blood in her stool. Denies fevers, chills, nausea, vomiting, other complaints at this time. Related Data Home Medications Medication Instructions Recorded Confirmed atorvastatin 20 mg tablet (Lipitor) 20 mg PO BEDTIME 09/02/20 08/19/24 conjugated estrogens 1.25 mg 1.25 mg PO DAILY 09/02/20 08/19/24 tablet (Premarin) metoprolol tartrate 100 mg tablet 100 mg PO DAILY 09/02/20 08/19/24 polyethylene glycol 3350 17 gram 17 g PO DAILY PRN Constipation 09/07/20 08/19/24 oral powder packet (Miralax) pioglitazone 15 mg tablet (Actos) 30 mg PO BID 07/15/24 08/19/24 zolpidem 5 mg tablet (Ambien) 5 mg PO BEDTIME 07/15/24 08/19/24 Previous Rx's Medication Instructions Recorded acetaminophen 325 mg tablet 650 mg (2 x 325 mg) PO TID #60 tabs 09/09/20 aspirin 81 mg tablet,delayed 81 mg PO BID #60 tabs 09/09/20 release hydrocodone 10 mg-acetaminophen 1 tab PO Q4HR PRN Pain, Moderate 09/09/20 325 mg tablet (4-6) #60 tabs ciprofloxacin HCl 250 mg tablet 250 mg PO BID #6 tabs 07/19/24 nitrofurantoin 100 mg PO BID #30 caps 07/19/24 monohydrate/macrocrystals 100 mg capsule ciprofloxacin HCl 500 mg tablet 500 mg PO Q12H #20 tabs 08/12/24 oxycodone 5 mg tablet 5 mg PO QID PRN pain #14 tabs 08/12/24 tamsulosin 0.4 mg capsule 0.4 mg PO BEDTIME #30 caps 08/12/24 Allergies Allergy/AdvReac Type Severity Reaction Status Date / Time Sulfa (Sulfonamide Allergy Severe Anaphylaxis Verified 08/19/24 13:24 Antibiotics) Patient History Medical History Delayed menopause Constipation Pneumaturia Incomplete emptying of bladder Osteoarthritis Insomnia Diverticulosis HLD (hyperlipidemia) Diabetes HTN (hypertension) Surgical History History of partial surgical removal of colon Hx of bilateral cataract extraction (07/2020) Hx of appendectomy Hx of cholecystectomy History of colon resection (~2013) History of bladder surgery Family History Other Anomaly of ear with impairment of hearing Diabetes mellitus Hyperlipidemia Hypertension Social History marital status: number of children: 3 household members: spouse Smoking Status: Never smoker alcohol intake: never caffeine: No Type(s) of exercise: regular exercise frequency: 1-2 times per week duration: 15-30 minutes/day Smoking Status: Never smoker Exam Initial Vital Signs Initial Vital Signs: Vital Signs Temperature 97.8 F 08/28/24 16:06 Pulse Rate 60 08/28/24 16:06 Respiratory Rate 16 08/28/24 16:06 Blood Pressure 167/70 H 08/28/24 16:06 Pulse Oximetry 95 08/28/24 16:06 Oxygen Delivery Method Room Air 08/28/24 16:06 Const: Awake, alert, no acute distress, nontoxic appearing Cardiac: regular rate, regular rhythm RESP: unlabored, clear bilaterally, no wheezing GI: Soft, nontender, nondistended Rectal: Generalized skin irritation around rectum, no gross blood, soft brown stool in vault Skin: Warm, Dry, intact, no rashes Neuro: AO x3, CN II-XII grossly intact, moves all extremities Course Orders Ordered: ED Orders 08/28/24 21:17 CT abdomen pelvis w con Stat 08/28/24 21:54 Hemoglobin and Hematocrit Stat Discontinued Medications Ondansetron HCl (Ondansetron 4 Mg/2 Ml Inj) 4 mg IV NOW PRN PRN Reason: Nausea And Vomiting Ondansetron HCl (Ondansetron 4 Mg Odt) 4 mg PO NOW PRN PRN Reason: Nausea And Vomiting Vital Signs Vital signs: Vital Signs - 8 hr 08/28/24 21:00 08/28/24 21:01 08/28/24 21:01 Pulse Rate 62 61 Respiratory Rate 12 19 Blood Pressure 123/61 Pulse Oximetry 94 96 08/28/24 21:41 08/28/24 21:45 08/28/24 21:45 Pulse Rate 68 65 Respiratory Rate 19 Blood Pressure 141/77 H Pulse Oximetry 98 99 08/28/24 22:00 08/28/24 22:00 08/28/24 22:30 Pulse Rate 62 60 Respiratory Rate Blood Pressure 150/72 H Pulse Oximetry 97 08/28/24 22:31 08/28/24 22:31 Pulse Rate 61 Respiratory Rate Blood Pressure 136/60 Pulse Oximetry MDM - GI Bleed Differential Diagnosis Differential diagnosis: Likely hemorrhoids, infectious diarrhea and gastritis Lab Data 08/28/24 21:54 08/28/24 17:08 Labs: Lab Results 08/28/24 08/28/24 Range/Units 17:08 21:54 WBC 3.8 L (4.5-11.0) X10^3/uL RBC 4.20 (4.0-5.2) X10^6/uL Hgb 13.3 12.9 (12.0-16.0) g/dL Hct 40.4 39.2 (36-46) % MCV 96.2 (80-100) fL MCH 31.6 (26-34) PG MCHC 32.8 (30-36) % RDW 15.1 H (11.6-14.8) % Plt Count 168 (150-400) X10^3/uL Neut % (Auto) 56.6 (50-75) % Lymph % (Auto) 28.7 (25-40) % [place] % (Auto) 10.8 (3-14) % Eos % (Auto) 2.9 (2-4) % Baso % (Auto) 1.0 (0-2) % Neut # (Auto) 2200 (2152-8482) /uL Lymph # (Auto) 1100 (7112-7322) /uL [place] # (Auto) 400 (0-900) /uL Eos # (Auto) 100 (0-450) /uL Baso # (Auto) 0 (0-100) /uL Sodium 132 L (137-145) mmol/L Potassium 4.9 (3.4-5.1) mmol/L Chloride 101 (98-107) mmol/L Carbon Dioxide 23 (22-32) mmol/L BUN 24 H (7-17) mg/dL Creatinine 1.33 H (0.52-1.04) mg/dL Estimated GFR 40 L (>60) mL/min BUN/Creatinine Ratio 18.0 (6-22) Glucose 114 H (80-110) mg/dL Calcium 9.5 (8.4-10.2) mg/dL Total Bilirubin 0.8 (0.2-1.3) mg/dL AST 39 H (14-36) IU/L ALT 13 (<35) IU/L Alkaline Phosphatase 46 (38-126) U/L Total Protein 7.7 (6.3-8.2) g/dL Albumin 4.5 (3.5-5.0) g/dL Globulin 3.2 (1.7-4.1) g/dL Albumin/Globulin Ratio 1.4 (1.0-2.8) Lipase 74 (23-300) U/L Urine Dip Bedside Urine Glucose Negative Bedside Urine Bilirubin - Negative Bedside Urine Ketone - Negative Urine Specific [place] 1.030 Bedside Urine Occult Blood - Negative Bedside Urine pH 5.5 Bedside Urine Protein - Negative Bedside Urine Urobilinogen - Negative Bedside Urine Nitrite - Negative Bedside Urine Leukocytes - Negative Esterase Imaging Data CT scan - abdomen/pelvis: Radiologist's Impression: PROCEDURE: CT ABDOMEN PELVIS W CON INDICATIONS: BRIGHT RED BLOOD PER RECTUM X 1 DAY TECHNIQUE: After the administration of intravenous contrast, axial sections acquired from the lung bases to the pubic symphysis. Coronal and sagittal reformats were performed. For radiation dose reduction, the following was used: automated exposure control, adjustment of mA and/or kV according to patient size. COMPARISON: [facility], CT, CT ABDOMEN PELVIS W CON, 08/12/2024, 15:54. FINDINGS: Image quality: Diagnostic. Lower Chest: No significant findings. ABDOMEN: Liver: No solid mass. Gallbladder: No radiopaque gallstones or wall thickening. Biliary ducts: No biliary dilation. Pancreas: No ductal dilation. Spleen: Size is within normal limits. Adrenal Glands: No adrenal nodules. Kidneys and Ureters: No hydronephrosis. No solid mass. No complex renal cystic lesion which requires follow up. Kidneys are atrophic. Stomach and Bowel: Normal colonic caliber, without significant wall thickening. Prior colectomy. Peritoneum: No abnormal intraperitoneal fluid. No free air. Ventral Wall: No significant ventral hernia. Abdominal Nodes: No retroperitoneal or mesenteric adenopathy by size criteria. Vessels: Aorta and inferior vena cava are normal in size. PELVIS: Pelvic Organs: Septate uterus. Bladder: No bladder wall thickening, accounting for underdistention. Pelvic Nodes: No enlarged lymph nodes. Miscellaneous: No inguinal hernias are seen. Generalized atrophy of the muscles. Bones: No aggressive osseous abnormality. Multiple vertebral hemangiomas. IMPRESSION: Prior total colectomy, without evidence of enteritis or other finding to explain the patient's bright red blood per rectum. Other chronic findings as above. Dictated by: Davion Wiggins M.D. on 08/28/2024 at 22:02 Approved by: Davion Wgigins M.D. on 08/28/2024 at 22:04 [facility] Narrative Medical decision making narrative: Well-appearing patient with reported multiple episodes of bloody stools. On exam patient was nontoxic in appearance, hemodynamically stable. Abdomen soft without abdominal tenderness that is reproducible. Rectal exam shows no gross blood, soft brown stool in vault. There is significant perirectal irritation, question if this could be cause of the patient's reported blood. CT of the abdomen and pelvis was ordered due to patient's history of colectomy and complicated abdominal surgeries. CT imaging shows no acute findings to explain patient's stools. Hemoglobin is stable x2. Uncertain etiology of patient's symptoms. Patient was informed of lab and imaging findings. She was recommended to follow up with her surgeon back on [facility] if she continues to experience symptoms as she may need either a colonoscopy or an EGD. ED return precautions discussed at bedside. Patient expressed understanding of the plan and is in agreement at this time. All questions answered at the time of discharge. Discharge Plan Departure Patient Disposition: Home Clinical Impression: Bleeding per rectum Instructions: DI for Rectal Bleeding Activity Restrictions/Additional Instructions: Your hemoglobin today was normal and I do not see any signs of bleeding or inflammation on your CT scan. Follow up with your surgeon to see if you would need a colonoscopy or endoscopy to figure out why you were having bright red per rectum Prescriptions: No Action nitrofurantoin monohyd/m-cryst 100 mg capsule 100 mg PO BID Qty: 30 0RF Rx Instructions: must administer with a meal/food ciprofloxacin HCl 250 mg tablet 250 mg PO BID Qty: 6 0RF Rx Instructions: Take one tablet by mouth twice daily one day prior to cystoscopy, the day of cystoscopy, and the day after cystoscopy. atorvastatin [Lipitor] 20 mg Tablet 20 mg PO BEDTIME metoprolol tartrate 100 mg Tablet 100 mg PO DAILY Premarin 1.25 mg Tablet 1.25 mg PO DAILY polyethylene glycol 3350 [Miralax] 17 gram Powder In Packet 17 g PO DAILY PRN (Reason: Constipation) acetaminophen 325 mg Tablet 650 mg PO TID Qty: 60 0RF hydrocodone-acetaminophen 10-325 mg Tablet 1 tab PO Q4HR PRN (Reason: Pain, Moderate (4-6)) Qty: 60 0RF aspirin 81 mg Tablet,Delayed Release (Dr/Ec) 81 mg PO BID Qty: 60 0RF pioglitazone [Actos] 15 mg tablet 30 mg PO BID ciprofloxacin HCl 500 mg tablet 500 mg PO Q12H Qty: 20 0RF oxycodone 5 mg tablet 5 mg PO QID PRN (Reason: pain) Qty: 14 0RF tamsulosin 0.4 mg capsule 0.4 mg PO BEDTIME Qty: 30 12RF zolpidem [Ambien] 5 mg tablet 5 mg PO BEDTIME Referrals: Zuleika Hawkins ARNP [Primary Care Provider] - Stand Alone Forms: Patient Portal/API/Survey
--- NOTE | 2024-08-28 21:38 | PC.NURSE ---
Patient told this RN that around 1930 she took one of her husbands hydrocodone, one of her oxycodone, and 325 tylenol. Patient reports feeling really good now and has no pain, Dr. Bejarano is aware that she took home pain medication
[2024-08-28 22:03] LABS: Hematocrit 39.2 % (36-46); Hemoglobin 12.9 g/dL (12.0-16.0)
== END 2024-08-28 22:31 | disposition home or self-care (01) ==
PROVIDERS: Emergency Medicine; Emergency Provider Emergency Medicine
DX: K62.5 Hemorrhage of anus and rectum (principal); R10.84 Generalized abdominal pain
CPT/HCPCS: 36415; 74177; 80053; 81003; 83690; 85014; 85018; 85025; 93005; 99283; 99284; Q9967

== ENCOUNTER → 2024-09-13 13:45 | Outpatient (CLI) | payer MEDICARE, OTHER, SELFPAY ==
[2020-09-07 11:33] VITALS: BMI 38.8
== END ==
PROVIDERS: Visit Provider Urology
DX: R33.9 Retention of urine, unspecified (principal)
CPT/HCPCS: 87077; 87086; 87186

== ENCOUNTER 2024-09-20 09:39 | Day surgery (SDC) | payer MEDICARE, OTHER, SELFPAY ==
[2020-09-07 11:33] VITALS: BMI 38.8
[2024-09-17 10:52] VITALS: BMI 37.2
[2024-09-20] VITALS (8 sets, daily range): BP systolic 154–182; BP diastolic 71–92; PULSE 60–94; RESP 11–21; TEMP 36.3–37; O2SAT 95–98; BMI 37.2
--- NOTE | 2024-09-20 | PATH_ITS ---
[facility] Accession Number: [id number] No. of containers..01 Tissue . 01 Material submitted: . endometrium - ENDOMETRIAL CURETTINGS . 01 Diagnosis: ENDOMETRIAL CURETTINGS: Patchy glandular crowding. Background disordered proliferative endometrium; negative for endometrioid intraepithelial neoplasia or malignancy. Some endometrial fragments demonstrate prominent vessels, suggestive of polyp, if clinical and imaging studies are concordant. Fragments of myometrium; negative for significant atypia. JONATHAN 09/24/2024 1308 Local . 01 Electronically signed: . Aleksandra Park MD, Pathologist NPI- [id number] . 01 Gross description: . Received in formalin with two patient identifiers and endometrial curettings, are multiple guzman soft tissue fragments aggregating to 2.5 x 1.8 x 0.5 cm. Filtered and submitted in cassette A1. ([id number]) /JONATHAN 09/22/2024 0534 Local . 01 Pathologist provided ICD-10: N95.0 . 01 CPT . 683106 Specimen Comment: A courtesy copy of this report has been sent to [facility] Pathology Performed at: [address] [address], [place], [place] [id number] MD Jay Stiles MD Phone: [phone]
[2024-09-20] MEDS: LACTATED RINGERS 1,000 ML 42 ML IV (10:40)
--- NOTE | 2024-09-20 11:01 | P.HPOB_ITS ---
History of Present Illness History of Present Illness Narrative: Ivet Farley is a 79 year old female presents for hysteroscopy/D&C due to postmenopausal bleeding. She has no new concerns today. She had her normal period 09/05/24-09/11/24. [facility] Medical History Urinary leakage Bladder outlet obstruction Voiding dysfunction Delayed menopause Constipation Pneumaturia Incomplete emptying of bladder Osteoarthritis Insomnia Diverticulosis HLD (hyperlipidemia) Diabetes HTN (hypertension) Surgical History (Updated 09/17/24 @ 10:53 by Criss Vicente RN) 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) History of partial surgical removal of colon Hx of bilateral cataract extraction (07/2020) Hx of appendectomy Hx of cholecystectomy History of colon resection (~2013) History of bladder surgery Family History Other Anomaly of ear with impairment of hearing Diabetes mellitus Hyperlipidemia Hypertension Social History marital status: number of children: 3 household members: spouse Smoking Status: Never smoker alcohol intake: never caffeine: No Type(s) of exercise: regular exercise frequency: 1-2 times per week duration: 15-30 minutes/day Meds Home Medications and Allergies Home Medications Medication Instructions Recorded Confirmed Type atorvastatin 20 mg tablet (Lipitor) 20 mg PO BEDTIME 09/02/20 09/20/24 History conjugated estrogens 1.25 mg 1.25 mg PO DAILY 09/02/20 09/20/24 History tablet (Premarin) metoprolol tartrate 100 mg tablet 100 mg PO DAILY 09/02/20 09/20/24 History polyethylene glycol 3350 17 gram 17 g PO DAILY PRN Constipation 09/07/20 09/20/24 History oral powder packet (Miralax) acetaminophen 325 mg tablet 650 mg (2 x 325 mg) PO TID #60 tabs 09/09/20 09/20/24 Rx aspirin 81 mg tablet,delayed 81 mg PO BID #60 tabs 09/09/20 09/20/24 Rx release hydrocodone 10 mg-acetaminophen 1 tab PO Q4HR PRN Pain, Moderate 09/09/20 09/20/24 Rx 325 mg tablet (4-6) #60 tabs pioglitazone 15 mg tablet (Actos) 30 mg PO BID 07/15/24 09/20/24 History zolpidem 5 mg tablet (Ambien) 5 mg PO BEDTIME 07/15/24 09/13/24 History oxycodone 5 mg tablet 5 mg PO QID PRN pain #14 tabs 08/12/24 09/13/24 Rx tamsulosin 0.4 mg capsule 0.4 mg PO BEDTIME #30 caps 08/12/24 09/13/24 Rx cephalexin 500 mg capsule 500 mg PO BID #20 caps 09/16/24 09/20/24 Rx atenolol 50 mg tablet 50 mg PO DAILY 09/20/24 09/20/24 History Allergies Allergy/AdvReac Type Severity Reaction Status Date / Time Sulfa (Sulfonamide Allergy Severe Anaphylaxis Verified 09/20/24 10:12 Antibiotics) Review of Systems Review of Systems ROS: Yes All systems reviewed with the patient and are negative except as otherwise documented Exam Vital Signs (past 8 hours): - 09/20/24 10:18 Temperature 97.7 F Pulse Rate 60 Respiratory Rate 18 Blood Pressure 182/80 H Pulse Oximetry 97 Oxygen Delivery Method Room Air Oxygen Flow Rate 0 Oxygen Delivery Method Room Air Oxygen Flow Rate 0 Const General: cooperative, healthy appearing and comfortable Resp Effort & Inspection: normal respiratory effort and able to speak in complete sentences Neuro General: patient alert and patient awake Cognition: normal cognition Speech: speech normal Extrem General: normal to inspection Psych Mood: congruent mood Affect: normal affect Objective Imaging US - abdomen: Radiologist's impression: INDICATIONS: enlarged uterus, does still have vaginal menses TECHNIQUE: Real-time scanning was performed of the pelvic organs, with image documentation. Additional endovaginal scanning was necessary due to incomplete visualization of the adnexal and endometrial structures by transabdominal scanning. COMPARISON: [facility], CT, CT ABDOMEN PELVIS W CON, 08/12/2024, 15:54. FINDINGS: Uterus: Uterus is retroverted and normal in size at 6.8 x 8.5 x 4.2 cm. The myometrium is homogeneous. The endometrium measures 7 mm combined thickness. Bicornuate configuration of the uterus. Midline posterior intramural fibroid measures 3.0 x 2.4 x 2.6 cm. Left posterior intramural fibroid measures 1.2 x 1.1 x 1.2 cm. Ovaries: The right ovary is not well visualized. The left ovary measures 4.2 x 3.2 x 3.0 cm. The left ovary has a normal sonographic appearance. Less than 12 follicles can be seen. No adnexal masses are seen. Other: No pathologic free abdominal or pelvic fluid. IMPRESSION: 1. Bicornuate configuration of the uterus. 2. Uterine fibroids. 3. Endometrium measures up to 7 mm in thickness, which is greater than expected in the setting of postmenopausal bleeding. Recommend OBGYN follow-up for possible endometrial biopsy. Pelvic MRI with and without contrast could be performed for further evaluation if indicated clinically. Approved by: Avila Monahan M.D. on 08/12/2024 at 19:25 Assessment & Plan Assessment and plan (1) Postmenopausal bleeding: Status: Acute Assessment & Plan narrative: 79yo F with postmenopausal bleeding and thickened endometrial lining on ultrasound, counseled and consented for diagnostic hysteroscopy with dilation and curettage. We reviewed the surgical consent today and signed in preop. We also reviewed postop expectations. -plan for same day procedure -will review pathology results at her postoperative visit, or sooner if malignancy is identified Surgery consent We discussed the risks/benefits/alternatives to the proposed procedure, to include but not limited to: -risk of bleeding, requiring medications, blood products, or other procedures as indicated -risk of infection, requiring prolonged hospital stay or other procedures -risk of injury to other structures, including bowel, bladder, blood vessels, nerves, etc. which may also require additional procedures -risk of adverse reaction to anesthesia or medications -risk of venous thromboembolism and associated sequelae -risk of rare complications such as cardiac arrest, or extremely rarely, Patient is aware of the risks, and desires to proceed with planned surgical procedure. Time-Based Coding :: [20min] spent with patient and on the chart (including review of chart, obtaining history, exam, reviewing outside data, placing orders, documenting exam and treatment plan, and counseling patient) on [09/20/24].
--- NOTE | 2024-09-20 11:38 | SUR.OPER ---
MYOSURE DEFICIT 100ML, PRESSURE, TOTAL TIME 21SEC
--- NOTE | 2024-09-20 11:57 | P.OP_ITS ---
Operative Date/Time/Diagnoses Date of procedure: 09/20/24 Time of procedure: 11:00 Pre-op diagnosis: Postmenopausal bleeding Post-op diagnosis: same Procedure & Clinicians Procedure: Diagnostic hysteroscopy Hysteroscopic polypectomy Dilation and curettage Same procedure as scheduled: Yes Indications: 79yo F with history of postmenopausal bleeding and thickened endometrial stripe on imaging, counseled and consented for the above procedures. Surgeon: Dominique Smith Click Yes if Unassisted: Yes Anesthesia Type: General Operative Notes Findings: Endometrial cavity with polypoid tissue, otherwise normal appearing cavity with bilateral tubal ostia visualized. Specimen(s): other (endometrial curettings) Estimated Blood Loss (mL): 1 Blood products transfused: none Procedure in detail: The risks, benefits, indications and alternatives of the procedure were reviewed with the patient and informed consent was obtained. The pt was taken to the operating room where general anesthesia with LMA was obtained without difficulty. The pt was then placed in the low lithotomy position using gel- padded Medardo stirrups. Sequential compression devices were placed bilaterally for VTE prophylaxis. The pt was then prepped and draped in the sterile fashion. A sterile speculum was placed in the patient?s vagina and the cervix was visualized. A single tooth tenaculum was used to grasp the anterior lip of the cervix. The cervix was then gently, dilated to a size 8 Hegar dilator. The operative hysteroscope was first primed and pressure set. The operative hysteroscope was then advanced through the endocervical canal under direct visualization. The uterus was distended with warm saline, and notable for the above findings. The Myosure Lite was then inserted into the operative hysteroscope. The endometrial polyps were excised, and global endometrial sampling was then performed. The operative hysteroscope was then removed under direct visualization. Tissue obtained was sent to pathology for review. The single tooth tenaculum was removed from the anterior lip of the cervix. The tenaculum site was noted to be hemostatic after direct pressure was applied. All instruments were then removed from the patient?s vagina. Hysteroscopic fluid deficit was 100cc of normal saline. The patient tolerated the procedure well. At the completion of the case the sponge and needle counts were correct x 2. The patient was taken to the PACU in stable condition. Complications: none Post-operative Condition: stable Disposition: PACU Plan for aftercare: Discharge to home once patient is meeting all discharge criteria.
[2024-09-20] MEDS: OXYCODONE IR 5 MG TABLET PO ×2 (12:05→12:19)
[2024-09-20] MEDS: ACETAMINOPHEN 325 MG TABLET 650 MG PO (12:30)
== END 2024-09-20 13:10 | disposition home or self-care (01) ==
PROVIDERS: Referring Provider Student in an Organized Health Care Education/Training Program; Visit Provider Student in an Organized Health Care Education/Training Program
PROC: 0UDB8ZZ Extraction of Endometrium, Via Natural or Artificial Opening Endoscopic (ICD-10-PCS; CPT 58558; principal; 2024-09-20 11:15)
DX: N95.0 Postmenopausal bleeding (principal); E11.9 Type 2 diabetes mellitus without complications; I10 Essential (primary) hypertension; E78.5 Hyperlipidemia, unspecified
CPT/HCPCS: 58558; J0330; J1885; J2704; J3010

== ENCOUNTER 2024-11-15 16:51 | Emergency (ER) | payer MEDICARE, OTHER, SELFPAY ==
[2020-09-07 11:33] VITALS: BMI 38.8
[2024-11-15 16:56] VITALS: BP 138/66; PULSE 65; RESP 18; TEMP 36.4; O2SAT 99; BMI 34.9
--- NOTE | 2024-11-15 17:05 | ED_ITS ---
HPI - Extremity Problem <Guerda Ross PA-C - Last Filed: 11/15/24 19:04> General Chief complaint: Extremity Problem,Nontraumatic Stated complaint: leg px sent by PCP r/o blood clot Time Seen by Provider: 11/15/24 17:05 Source: patient Mode of arrival: Family Vehicle History of Present Illness HPI Narrative: Ms. Farley is an 79-year-old female with a past medical history of hypertension, hyperlipidemia, diabetes, chronic pain on hydrocodone, partial colectomy, currently being evaluated for postmenopausal bleeding and rectal bleeding who presents to the emergency department with her after being sent by her [employer] bpm developer for concern of right lower extremity blood clot. Patient states her right lower leg has been extremely painful red, hot, swollen for the last 8 days. Also reports that her left leg is slightly swollen as well but not hot or red. States that she took water pills prescribed by her PCP but this did not improve the swelling. She also states that she has been suffering with chronic abdominal and rectal pain and has a colonoscopy scheduled on 12/12/[address] Beck for further evaluation of rectal bleeding and constipation. She admits to feeling short of breath over the last 3 months. She denies chest pain. She went to her [employer] bpm developer today for full skin evaluation but was sent to the ER due to the concern of right leg pain and swelling, she was advised to get an ultrasound to rule out DVT. She denies any trauma to the leg but has had surgery on the right knee in the past. Reports her only allergies are to sulfa antibiotics. Related Data Home Medications Medication Instructions Recorded Confirmed atorvastatin 20 mg tablet (Lipitor) 20 mg PO BEDTIME 09/02/20 11/04/24 conjugated estrogens 1.25 mg 1.25 mg PO DAILY 09/02/20 11/04/24 tablet (Premarin) metoprolol tartrate 100 mg tablet 100 mg PO DAILY 09/02/20 11/04/24 polyethylene glycol 3350 17 gram 17 g PO DAILY PRN Constipation 09/07/20 09/20/24 oral powder packet (Miralax) pioglitazone 15 mg tablet (Actos) 30 mg PO BID 07/15/24 11/04/24 zolpidem 5 mg tablet (Ambien) 5 mg PO BEDTIME 07/15/24 11/04/24 atenolol 50 mg tablet 50 mg PO DAILY 11/04/24 11/04/24 losartan 50 mg tablet 50 mg PO DAILY 11/04/24 11/04/24 medroxyprogesterone 2.5 mg tablet 2.5 mg PO DAILY 11/04/24 11/04/24 potassium gluconate 550 mg (90 mg) 550 mg PO DAILY 11/04/24 11/04/24 tablet Previous Rx's Medication Instructions Recorded sodium,potassium,mag sulfates 17.5 See Rx Instructions PO .COMPLEX 11/05/24 gram-3.13 gram-1.6 gram oral soln #354 mL (Suprep Bowel Prep Kit) doxycycline hyclate 100 mg capsule 100 mg PO BID 7 days #14 caps 11/15/24 Allergies Allergy/AdvReac Type Severity Reaction Status Date / Time Sulfa (Sulfonamide Allergy Severe Anaphylaxis Verified 11/15/24 17:02 Antibiotics) Review of Systems <Guerda Ross PA-C - Last Filed: 11/15/24 19:04> Review of Systems ROS Unobtainable: All systems reviewed & are unremarkable except as noted in HPI and below Patient History <Guerda Ross PA-C - Last Filed: 11/15/24 19:04> Medical History Urinary leakage Bladder outlet obstruction Voiding dysfunction Delayed menopause Constipation Pneumaturia Incomplete emptying of bladder Osteoarthritis Insomnia Diverticulosis HLD (hyperlipidemia) Diabetes HTN (hypertension) Surgical History 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) History of partial surgical removal of colon Hx of bilateral cataract extraction (07/2020) Hx of appendectomy Hx of cholecystectomy History of colon resection (~2013) History of bladder surgery Family History Other Anomaly of ear with impairment of hearing Diabetes mellitus Hyperlipidemia Hypertension Social History marital status: number of children: 3 household members: spouse Smoking Status: Never smoker alcohol intake: never caffeine: No Type(s) of exercise: regular exercise frequency: 1-2 times per week duration: 15-30 minutes/day Smoking Status: Never smoker Exam <Guerda Ross PA-C - Last Filed: 11/15/24 19:04> Narrative Exam Narrative: GENERAL: 79 year old patient appears stated age. Overweight patient, in mild distress anytime touched. HEAD: Atraumatic. Normocephalic. NECK: Trachea midline. Cervical ROM intact. CARDIOVASCULAR: Regular rate and rhythm. RESPIRATORY: ?Nonlabored respirations. ?Speaking in clear, full sentences. ?Clear to auscultation. No increased work of breathing. GASTROINTESTINAL: Abdomen soft, non-tender, nondistended. EXTREMITIES: Bilateral 1+ pitting edema. Right lower extremity more swollen than left with erythema and increased warmth. Slowed capillary refill on bilateral feet. DP & PT pulses present BL, detected with doppler US. NEURO: AOx3. ?Clear speech. ?Moves all 4 extremities appropriately. Initial Vital Signs Initial Vital Signs: Vital Signs Temperature 97.6 F 11/15/24 16:56 Pulse Rate 65 11/15/24 16:56 Respiratory Rate 18 11/15/24 16:56 Blood Pressure 138/66 11/15/24 16:56 Pulse Oximetry 99 11/15/24 16:56 Oxygen Delivery Method Room Air 11/15/24 16:56 <Matthew Miller MD - Last Filed: 11/16/24 05:32> Initial Vital Signs Initial Vital Signs: Vital Signs Temperature 97.6 F 11/15/24 16:56 Pulse Rate 65 11/15/24 16:56 Respiratory Rate 18 11/15/24 16:56 Blood Pressure 138/66 11/15/24 16:56 Pulse Oximetry 99 11/15/24 16:56 Oxygen Delivery Method Room Air 11/15/24 16:56 Course <Guerda Ross PA-C - Last Filed: 11/15/24 19:04> Orders Ordered: Discontinued Medications Aspirin (Aspirin 81 Mg Chew Tab) 324 mg PO NOW ONE Stop: 11/15/24 17:21 Last Admin: 11/15/24 17:35 Dose: Not Given Documented By: LAWRENCE Doxycycline Hyclate (Doxycycline Hyclate 100 Mg Tablet) 100 mg PO NOW ONE Stop: 11/15/24 18:52 Last Admin: 11/15/24 19:00 Dose: 100 mg Documented By: LAWRENCE Hydromorphone HCl (Hydromorphone 1 Mg Inj) 0.5 mg IV NOW ONE Stop: 11/15/24 17:21 Last Admin: 11/15/24 17:45 Dose: 0.5 mg Documented By: LAWRENCE Ondansetron HCl (Ondansetron 4 Mg/2 Ml Inj) 4 mg IV NOW ONE Stop: 11/15/24 17:21 Last Admin: 11/15/24 17:45 Dose: 4 mg Documented By: LAWRENCE Vital Signs Vital signs: Vital Signs - 8 hr 11/15/24 16:56 11/15/24 18:40 Temperature 97.6 F Pulse Rate 65 59 L Respiratory Rate 18 18 Blood Pressure 138/66 152/65 H Pulse Oximetry 99 99 Oxygen Delivery Method Room Air <Matthew Miller MD - Last Filed: 11/16/24 05:32> Orders Ordered: Discontinued Medications Aspirin (Aspirin 81 Mg Chew Tab) 324 mg PO NOW ONE Stop: 11/15/24 17:21 Last Admin: 11/15/24 17:35 Dose: Not Given Documented By: LAWRENCE Doxycycline Hyclate (Doxycycline Hyclate 100 Mg Tablet) 100 mg PO NOW ONE Stop: 11/15/24 18:52 Last Admin: 11/15/24 19:00 Dose: 100 mg Documented By: LAWRENCE Hydromorphone HCl (Hydromorphone 1 Mg Inj) 0.5 mg IV NOW ONE Stop: 11/15/24 17:21 Last Admin: 11/15/24 17:45 Dose: 0.5 mg Documented By: LAWRENCE Ondansetron HCl (Ondansetron 4 Mg/2 Ml Inj) 4 mg IV NOW ONE Stop: 11/15/24 17:21 Last Admin: 11/15/24 17:45 Dose: 4 mg Documented By: LAWRENCE Vital Signs Vital signs: Vital Signs - 8 hr 11/15/24 16:56 11/15/24 18:40 Temperature 97.6 F Pulse Rate 65 59 L Respiratory Rate 18 18 Blood Pressure 138/66 152/65 H Pulse Oximetry 99 99 Oxygen Delivery Method Room Air MDM - Extremity (Nontraumatic) <Guerda Ross PA-C - Last Filed: 11/15/24 19:04> Medical Records Attestation: I reviewed the patient's medical records. Lab Data 11/15/24 17:35 11/15/24 17:35 Labs: Lab Results 03/07/25 Range/Units 17:35 WBC 3.8 L (4.5-11.0) X10^3/uL RBC 4.35 (4.0-5.2) X10^6/uL Hgb 14.2 (12.0-16.0) g/dL Hct 42.4 (36-46) % MCV 97.5 (80-100) fL MCH 32.7 (26-34) PG MCHC 33.6 (30-36) % RDW 14.8 (11.6-14.8) % Plt Count 157 (150-400) X10^3/uL Neut % (Auto) Not Reportable Lymph % (Auto) Not Reportable Norman % (Auto) Not Reportable Eos % (Auto) Not Reportable Baso % (Auto) Not Reportable Lymph # (Auto) Not Reportable Norman # (Auto) Not Reportable Baso # (Auto) Not Reportable Total Counted 100 Seg Neutrophils % 54.0 (38-70) % Lymphocytes % (Manual) 25.0 (25-45) % Atypical Lymphs % 5.0 H ( - 0) % Monocytes % (Manual) 14.0 H (2-11) % Eosinophils % (Manual) 1.0 L (2-4) % Basophils % (Manual) 1.0 (0-1) % Neutrophils # (Manual) 2052 L (8715-2666) /uL RBC Morphology See below Anisocytosis 1+ H PT 10.7 (9.4-12.5) SECONDS INR 0.9 (0.9-1.3) APTT 23 L (25.1-36.5) SECONDS Sodium 133 L (137-145) mmol/L Potassium 4.3 (3.4-5.1) mmol/L Chloride 97 L (98-107) mmol/L Carbon Dioxide 26 (22-32) mmol/L BUN 22 H (7-17) mg/dL Creatinine 1.28 H (0.52-1.04) mg/dL Estimated GFR 42 L (>60) mL/min BUN/Creatinine Ratio 17.2 (6-22) Glucose 115 H (80-110) mg/dL Calcium 9.6 (8.4-10.2) mg/dL Total Bilirubin 0.5 (0.2-1.3) mg/dL AST 34 (14-36) IU/L ALT 14 (<35) IU/L Alkaline Phosphatase 69 (38-126) U/L Total Creatine Kinase 80 (30-135) U/L Troponin I < 0.012 (0.01-0.034) ng/mL NT-Pro-B Natriuret Pep 207 (<450) pg/mL Total Protein 7.7 (6.3-8.2) g/dL Albumin 4.3 (3.5-5.0) g/dL Globulin 3.4 (1.7-4.1) g/dL Albumin/Globulin Ratio 1.3 (1.0-2.8) Lipase 101 (23-300) U/L Imaging Data Chest x-ray: Radiologist's Impression: PROCEDURE: XR CHEST 1V INDICATIONS: SOB TECHNIQUE: One view of the chest was acquired. COMPARISON: None. FINDINGS: Surgical changes and devices: None. Lungs and pleura: Low lung volumes bilaterally. Mild bibasilar opacities. No significant pleural effusion or pneumothorax. Mediastinum: Mediastinal contours appear normal. Heart size is normal. Bones and chest wall: No suspicious bony lesions. Overlying soft tissues appear unremarkable. IMPRESSION: Low lung volumes bilaterally with mild bibasilar atelectasis versus consolidations. RLE Vasc US: Radiologist's Impression: PROCEDURE: US PERIPH VENOUS LOW EXTREM RT INDICATIONS: pain swelling redness concern for dvt TECHNIQUE: Real-time imaging, as well as color and pulse Doppler interrogation, were performed of the lower extremity deep veins from the inguinal ligament to the popliteal fossa, with documentation of the visualized calf veins. COMPARISON: [facility], US PERIPH VENOUS LOW EXTREM RT, 02/26/2024, 15:16. FINDINGS: The common femoral, femoral, popliteal, and the visualized calf veins are normally compressible, and free of intraluminal thrombus. Color and pulse Doppler demonstrate normal phasic intraluminal flow. There is normal augmentation response to distal compression maneuver. IMPRESSION: No findings of lower extremity deep venous thrombosis. MDM Narrative Medical decision making narrative: 79-year-old female with a past medical history of hypertension, hyperlipidemia, diabetes, chronic pain on hydrocodone, partial colectomy, currently being evaluated for postmenopausal bleeding and rectal bleeding who presents to the emergency department with her after being sent by her oracle bpm developer for concern of right lower extremity blood clot. Patient states her right lower leg has been extremely painful red, hot, swollen for the last 8 days. Differential diagnosis includes but is not limited to cellulitis, DVT, superficial venous thrombophlebitis, fluid overload, etc. On exam the patient is in no acute distress, nontoxic appearing, vital signs all within normal limits. She does report significant pain any time she is lightly touched, most significantly the right leg. Right leg is swollen and erythematous with increased warmth. She does have 1+ pitting edema of bilateral lower extremities and slowed capillary refill in the feet, DP & PT pulses present with doppler bilaterally. We will obtain labs including cardiac enzymes, BNP, chest x-ray, right lower extremity ultrasound. We will treat significant pain with Dilaudid. Labs reveal low WBC count 3.8 (this is the same as 08/28/2024). Sodium 133, chloride 97, BUN 22, creatinine 1.28 with a GFR of 42, slightly improved from priors. Glucose 115. Negative troponin, negative BNP. Patient's pain improved significantly during her ED stay. Right lower extremity vascular ultrasound is negative for DVT. Chest x-ray reveals low lung volumes bilaterally with mild bibasilar atelectasis versus consolidation. Patient is not having cough or concern for upper respiratory infection/pneumonia however given her subacute shortness of breath, out of an abundance of caution I will treat her with doxycycline to cover for both cellulitis strep/staph/MRSA in addition to atypical pneumonia. First dose of antibiotics given in the emergency department. Recommended rest, avoid hot tub use (pt asked), elevate legs, complete full course of antibiotics. Discussed strict ED return precautions with the patient. Discussed abnormal lab results with the patient including leukopenia and advised follow up with PCP for repeat labs. Both the patient and her verbalized understanding of all information and are agreeable to this plan. Patient is ambulatory. Patient is stable for discharge home. <Matthew Miller MD - Last Filed: 11/16/24 05:32> Lab Data Labs: Lab Results 11/15/24 Range/Units 17:35 WBC 3.8 L (4.5-11.0) X10^3/uL RBC 4.35 (4.0-5.2) X10^6/uL Hgb 14.2 (12.0-16.0) g/dL Hct 42.4 (36-46) % MCV 97.5 (80-100) fL MCH 32.7 (26-34) PG MCHC 33.6 (30-36) % RDW 14.8 (11.6-14.8) % Plt Count 157 (150-400) X10^3/uL Neut % (Auto) Not Reportable Lymph % (Auto) Not Reportable Norman % (Auto) Not Reportable Eos % (Auto) Not Reportable Baso % (Auto) Not Reportable Lymph # (Auto) Not Reportable Norman # (Auto) Not Reportable Baso # (Auto) Not Reportable Total Counted 100 Seg Neutrophils % 54.0 (38-70) % Lymphocytes % (Manual) 25.0 (25-45) % Atypical Lymphs % 5.0 H ( - 0) % Monocytes % (Manual) 14.0 H (2-11) % Eosinophils % (Manual) 1.0 L (2-4) % Basophils % (Manual) 1.0 (0-1) % Neutrophils # (Manual) 2052 L (1071-6942) /uL RBC Morphology See below Anisocytosis 1+ H PT 10.7 (9.4-12.5) SECONDS INR 0.9 (0.9-1.3) APTT 23 L (25.1-36.5) SECONDS Sodium 133 L (137-145) mmol/L Potassium 4.3 (3.4-5.1) mmol/L Chloride 97 L (98-107) mmol/L Carbon Dioxide 26 (22-32) mmol/L BUN 22 H (7-17) mg/dL Creatinine 1.28 H (0.52-1.04) mg/dL Estimated GFR 42 L (>60) mL/min BUN/Creatinine Ratio 17.2 (6-22) Glucose 115 H (80-110) mg/dL Calcium 9.6 (8.4-10.2) mg/dL Total Bilirubin 0.5 (0.2-1.3) mg/dL AST 34 (14-36) IU/L ALT 14 (<35) IU/L Alkaline Phosphatase 69 (38-126) U/L Total Creatine Kinase 80 (30-135) U/L Troponin I < 0.012 (0.01-0.034) ng/mL NT-Pro-B Natriuret Pep 207 (<450) pg/mL Total Protein 7.7 (6.3-8.2) g/dL Albumin 4.3 (3.5-5.0) g/dL Globulin 3.4 (1.7-4.1) g/dL Albumin/Globulin Ratio 1.3 (1.0-2.8) Lipase 101 (23-300) U/L Discharge Plan Departure Patient Disposition: Home Clinical Impression: Cellulitis of right lower extremity, Hyponatremia Leukopenia Qualifiers: Leukopenia type: unspecified Qualified Code(s): D72.819 - Decreased white blood cell count, unspecified Instructions: DI for Cellulitis -- Adult Activity Restrictions/Additional Instructions: Dear Ms. Farley, Thank you for coming to the emergency room. Today you were evaluated for right lower leg redness, pain, swelling. The ultrasound revealed no blood clot in the leg. However I am concerned that you have an infection in the skin and soft tissues of the leg called cellulitis. You have been prescribed antibiotics to take twice a day for the next 7 days to treat this infection. If you do not see improvement in the redness or swelling of the leg in the next 2-3 days, please return to the emergency department. Return to the emergency department immediately however if you develop any new or worsening symptoms, fevers, or other concerns. Please elevate the legs whenever lying flat to help with swelling. Your lab work did reveal that your sodium level was slightly low, and your white blood cell count was slightly low. It is very important to follow up with your primary care doctor for further evaluation of your lab work. Please follow up with your primary care doctor within the next 2-3 days for ER follow-up. (If you do not have a PCP you can call [phone]. ?to schedule an appointment with an [facility] Primary Care Provider) IF YOU DEVELOP ANY NEW OR WORSENING SYMPTOMS, RETURN TO THE ER! Please read the attached instructions, they highlight more specific treatments and interventions for you at home. Thank you for letting me participate in your care, Guerda Ross PA-C Prescriptions: New doxycycline hyclate 100 mg capsule 100 mg PO BID 7 Days Qty: 14 0RF No Action sodium,potassium,mag sulfates [Suprep Bowel Prep Kit] 17.5-3.13-1.6 gram recon soln See Rx Instructions PO .COMPLEX Qty: 354 0RF Rx Instructions: take as directed by Physician medroxyprogesterone 2.5 mg tablet 2.5 mg PO DAILY atenolol 50 mg tablet 50 mg PO DAILY potassium gluconate 550 mg (90 mg) tablet 550 mg PO DAILY losartan 50 mg tablet 50 mg PO DAILY atorvastatin [Lipitor] 20 mg Tablet 20 mg PO BEDTIME metoprolol tartrate 100 mg Tablet 100 mg PO DAILY Premarin 1.25 mg Tablet 1.25 mg PO DAILY polyethylene glycol 3350 [Miralax] 17 gram Powder In Packet 17 g PO DAILY PRN (Reason: Constipation) pioglitazone [Actos] 15 mg tablet 30 mg PO BID zolpidem [Ambien] 5 mg tablet 5 mg PO BEDTIME Referrals: Zuleika Hawkins ARNP [Primary Care Provider] - Stand Alone Forms: Patient Portal/API/Survey ED Sign-out <Matthew Miller MD - Last Filed: 11/16/24 05:32> Cosign ED Attending Lavelle Attestation: I was immediately available in the department for consultation. This documentation has been reviewed and I agree with assessment and plan. Supervised by Matthew Miller MD
--- NOTE | 2024-11-15 17:20 | DI.US.S_ITS ---
PROCEDURE: US [facility] VENOUS LOW EXTREM RT INDICATIONS: pain swelling redness concern for dvt TECHNIQUE: Real-time imaging, as well as color and pulse Doppler interrogation, were performed of the lower extremity deep veins from the inguinal ligament to the popliteal fossa, with documentation of the visualized calf veins. COMPARISON: [facility], , [facility] VENOUS LOW EXTREM RT, 02/26/2024, 15:16. FINDINGS: The common femoral, femoral, popliteal, and the visualized calf veins are normally compressible, and free of intraluminal thrombus. Color and pulse Doppler demonstrate normal phasic intraluminal flow. There is normal augmentation response to distal compression maneuver. IMPRESSION: No findings of lower extremity deep venous thrombosis. Approved by: Avila Monahan M.D. on 11/15/2024 at 18:34
--- NOTE | 2024-11-15 17:20 | DI.RAD.S_ITS ---
PROCEDURE: XR CHEST 1V INDICATIONS: SOB TECHNIQUE: One view of the chest was acquired. COMPARISON: None. FINDINGS: Surgical changes and devices: None. Lungs and pleura: Low lung volumes bilaterally. Mild bibasilar opacities. No significant pleural effusion or pneumothorax. Mediastinum: Mediastinal contours appear normal. Heart size is normal. Bones and chest wall: No suspicious bony lesions. Overlying soft tissues appear unremarkable. IMPRESSION: Low lung volumes bilaterally with mild bibasilar atelectasis versus consolidations. Approved by: Avila Monahan M.D. on 11/15/2024 at 18:35
--- NOTE | 2024-11-15 17:28 | EKG_ITS ---
[address] [address] Test Date: 2024-11-15 Pat Name: Ivet Farley Department: Room: Gender: Female [employer] Machine: MELLISA : [id number] Requested By: Order Number: [id number] Reading MD: Medardo Sarmiento Measurements Intervals [place] Rate: 61 P: 56 [place]: 176 QRS: 11 QRSD: 86 T: 60 QT: 442 QTc: 444 Interpretive Statements Normal sinus rhythm Electronically Signed On 11-18-2024 8:32:46 PDT by Medardo Sarmiento
[2024-11-15] MEDS: HYDROMORPHONE 1 MG INJ 0.5 MG IV (17:45)
[2024-11-15] MEDS: ONDANSETRON 4 MG/2 ML INJ IV (17:45)
[2024-11-15 18:04] LABS: Hematocrit 42.4 % (36-46); Hemoglobin 14.2 g/dL (12.0-16.0); Mean Corpuscular HGB Conc 33.6 % (30-36); Mean Corpuscular Hemoglobin 32.7 PG (26-34); Mean Corpuscular Volume 97.5 fL (80-100); Platelet Count 157 X10^3/uL (150-400); Red Blood Cell Count 4.35 X10^6/uL (4.0-5.2); Red Cell Distribution Width 14.8 % (11.6-14.8); White Blood Cell Count 3.8 X10^3/uL (4.5-11.0)
[2024-11-15 18:07] LABS: Alanine Aminotransferase 14 IU/L (<35); Albumin 4.3 g/dL (3.5-5.0); Albumin Globulin Ratio 1.3 (1.0-2.8); Alkaline Phosphatase 69 U/L (38-126); Aspartate Aminotransferase 34 IU/L (14-36); BUN Creatinine Ratio 17.2 (6-22); Bilirubin Total 0.5 mg/dL (0.2-1.3); Blood Urea Nitrogen 22 mg/dL (7-17); Calcium 9.6 mg/dL (8.4-10.2); Carbon Dioxide 26 mmol/L (22-32); Chloride 97 mmol/L (98-107); Creatine Kinase 80 U/L (30-135); Estimated Glomerular Filt Rate 42 mL/min (>60); Globulin 3.4 g/dL (1.7-4.1); Glucose 115 mg/dL (80-110); HEMOLYSIS 25 (0-50); Lipase 101 U/L (23-300); Potassium 4.3 mmol/L (3.4-5.1); Sodium 133 mmol/L (137-145); Total Protein 7.7 g/dL (6.3-8.2)
[2024-11-15 18:10] LABS: Add Manual Diff / Slide Review YES
[2024-11-15 18:16] LABS: NT-proBNP (BNP-Adult 18+) 207 pg/mL (<450)
[2024-11-15 18:18] LABS: INR 0.9 (0.9-1.3); Prothrombin Time 10.7 SECONDS (9.4-12.5)
[2024-11-15 18:19] LABS: Troponin I < 0.012 ng/mL (0.01-0.034)
[2024-11-15 18:20] LABS: PTT Partial Thromboplastin Tim 23 SECONDS (25.1-36.5)
[2024-11-15 18:29] LABS: Neutrophils Absolute Manual 2052 /uL (3000-5900); Total Cells Counted 100
[2024-11-15 18:30] LABS: Anisocytosis 1+
[2024-11-15 18:40] VITALS: BP 152/65; PULSE 59; RESP 18; O2SAT 99
[2024-11-15] MEDS: DOXYCYCLINE HYCLATE 100 MG TABLET PO (19:00)
== END 2024-11-15 19:10 | disposition home or self-care (01) ==
PROVIDERS: Emergency Provider Physician Assistant
DX: L03.115 Cellulitis of right lower limb (principal); E87.1 Hypo-osmolality and hyponatremia; D72.819 Decreased white blood cell count, unspecified; R06.02 Shortness of breath
CPT/HCPCS: 36415; 71045; 80053; 82550; 83690; 83880; 84484; 85007; 85025; 85610; 85730; 93005; 93971; 96374; 96375; 99284; J1171; J2405

== ENCOUNTER 2025-01-30 10:34 | Day surgery (SDC) | payer MEDICARE, OTHER, SELFPAY ==
[2020-09-07 11:33] VITALS: BMI 38.8
[2025-01-30 11:33] VITALS: BP 168/91; PULSE 61; RESP 18; TEMP 36.1; O2SAT 96
[2025-01-30] MEDS: LACTATED RINGERS 1,000 ML 42 ML IV (11:42)
--- NOTE | 2025-01-30 13:06 | P.HP_ITS ---
History of Present Illness History of Present Illness Date Patient Seen: 01/30/25 Time Patient Seen: 13:06 Chief complaint: SDC Narrative: Ivet is an 79-year-old woman with rectal bleeding. See office note for details. 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) History of partial surgical removal of colon Hx of bilateral cataract extraction (07/2020) Hx of appendectomy Hx of cholecystectomy History of colon resection (~2013) History of bladder surgery Family History Other Anomaly of ear with impairment of hearing Diabetes mellitus Hyperlipidemia Hypertension Social History marital status: number of children: 3 household members: spouse Smoking Status: Never smoker alcohol intake: never caffeine: No Type(s) of exercise: regular exercise frequency: 1-2 times per week duration: 15-30 minutes/day Meds Home Medications and Allergies Home Medications Medication Instructions Recorded Confirmed Type atorvastatin 20 mg tablet (Lipitor) 20 mg PO BEDTIME 09/02/20 01/30/25 History conjugated estrogens 1.25 mg 1.25 mg PO DAILY 09/02/20 01/30/25 History tablet (Premarin) metoprolol tartrate 100 mg tablet 100 mg PO DAILY 09/02/20 01/30/25 History polyethylene glycol 3350 17 gram 17 g PO DAILY PRN Constipation 09/07/20 01/30/25 History oral powder packet (Miralax) pioglitazone 15 mg tablet (Actos) 30 mg PO BID 07/15/24 01/30/25 History zolpidem 5 mg tablet (Ambien) 5 mg PO BEDTIME 07/15/24 01/30/25 History atenolol 50 mg tablet 50 mg PO DAILY 11/04/24 01/30/25 History losartan 50 mg tablet 50 mg PO DAILY 11/04/24 01/30/25 History medroxyprogesterone 2.5 mg tablet 2.5 mg PO DAILY 11/04/24 01/30/25 History potassium gluconate 550 mg (90 mg) 550 mg PO DAILY 11/04/24 01/30/25 History tablet hydrocodone 5 mg-acetaminophen 325 1 tab PO Q6H PRN Pain (Scale Score 01/30/25 01/30/25 History mg tablet 1-3) Allergies Allergy/AdvReac Type Severity Reaction Status Date / Time Sulfa (Sulfonamide Allergy Severe Anaphylaxis Verified 01/30/25 11:21 Antibiotics) Exam Vital Signs (past 8 hours): - 01/30/25 11:33 Temperature 97.0 F L Pulse Rate 61 Respiratory Rate 18 Blood Pressure 168/91 H Pulse Oximetry 96 Oxygen Delivery Method Room Air Oxygen Delivery Method Room Air Const General: No acute distress Resp Effort & Inspection: normal respiratory effort Assessment & Plan Assessment and plan (1) Rectal bleeding: Status: Acute Plan Colonoscopy Time-Based Coding :: [TOTAL MINUTES] spent with patient and on the chart (including review of chart, obtaining history, exam, reviewing outside data, placing orders, documenting exam and treatment plan, and counseling patient) on [DATE]. PROFEE Executive Asst Document charge(s): No
--- NOTE | 2025-01-30 13:24 | P.OP.COLON_ITS ---
Operative Date/Time/Diagnoses Date of procedure: 01/30/25 Time of procedure: 13:24 Pre-op diagnosis: Rectal bleeding Post-op diagnosis: same Procedure & Clinicians Study performed: Sigmoidoscopy Same procedure as scheduled: No Surgeon: Rao Beck Procedure Notes Procedure in detail: Surgeon: Rao Beck MD Anesthesia: Leia Boss [employer]AIL KEY HOLDER Procedure: The patient was brought to the endoscopy suite, placed in left lateral decubitus position. The patient was connected to monitoring devices. A time-out was performed. Sedation was administered. Once the patient was adequately sedated, a digital rectal exam was performed and was normal. The scope was then inserted and advanced to the ileocolic anastomosis at 20 cm. It appeared that there may have been a blind pouch on the ileal side of the anastomosis. The mucosa was rather friable throughout the colon. No polyps were found. The scope was retroflexed in the rectum and no abnormalities were seen. The scope was straightened and removed. The patient was awakened and brought to recovery. Scope withdrawal time: 3 minutes Sedation time: 7 minutes EBL: 2 mL Findings: Ileocolic anastomosis at 20 cm, friable mucosa, possible blind ending pouch on the ileal side of the the anastomosis Post-procedure Disposition: PACU
[2025-01-30 13:26] VITALS: BP 127/69; PULSE 55; RESP 12; TEMP 36.1; O2SAT 98
[2025-01-30 13:31] VITALS: BP 145/70; PULSE 54; RESP 16; O2SAT 97
[2025-01-30 13:36] VITALS: BP 134/74; PULSE 53; RESP 16; O2SAT 97
[2025-01-30 13:41] VITALS: BP 161/83; PULSE 57; RESP 16; TEMP 36.2; O2SAT 98
[2025-01-30 13:51] VITALS: BP 162/87; PULSE 57; RESP 16; O2SAT 97
== END 2025-01-30 14:06 | disposition home or self-care (01) ==
PROVIDERS: PCP Family Medicine; Referring Provider Surgery; Visit Provider Surgery
PROC: 0DJD8ZZ Inspection of Lower Intestinal Tract, Via Natural or Artificial Opening Endoscopic (ICD-10-PCS; CPT 45378; principal; 2025-01-30 13:15)
DX: K62.5 Hemorrhage of anus and rectum (principal)
CPT/HCPCS: 45378; J2704

== ENCOUNTER → 2025-03-06 15:08 | Outpatient (CLI) | payer MEDICARE, OTHER, SELFPAY ==
[2020-09-07 11:33] VITALS: BMI 38.8
--- NOTE | 2025-03-06 15:13 | DI.RAD.S_ITS ---
PROCEDURE: XR LUMBAR SPINE 3V INDICATIONS: LUMBAR PAIN TECHNIQUE: 3 views of the lumbar spine were acquired. COMPARISON: None. FINDINGS: Moderate degenerative changes lower thoracic, lumbar spine with disc space narrowing, osteophytes, facet osseous hypertrophic changes most notably at L3 2-3 through L5-S1. Mild decreased height T9, T10, T11 some of which may be artifact however mild compression fractures age indeterminate could give this appearance. Moderate S-shaped scoliosis thoracolumbar spine. Degenerative changes of the bilateral hips and sacroiliac joints partially imaged. Grade 1 spondylolisthesis L3 on L4. IMPRESSION: Moderate degenerative changes as discussed above. Grade 1 spondylolisthesis L3 on L4. Other findings as above. If symptoms persist or worsen, or there is high clinical suspicion of lumbar abnormality, MRI could be performed. Dictated by: Too Vyas M.D. on 03/07/2025 at 10:43 Approved by: Too Vyas M.D. on 03/07/2025 at 10:47
== END ==
PROVIDERS: PCP Family Medicine; Referring Provider Family Medicine; Visit Provider Family Medicine
DX: M51.34 Other intervertebral disc degeneration, thoracic region (principal); M51.360 Other intervertebral disc degeneration, lumbar region with discogenic back pain only; M47.816 Spondylosis without myelopathy or radiculopathy, lumbar region; M47.817 Spondylosis without myelopathy or radiculopathy, lumbosacral region; M43.16 Spondylolisthesis, lumbar region; M48.04 Spinal stenosis, thoracic region; M48.061 Spinal stenosis, lumbar region without neurogenic claudication; M41.9 Scoliosis, unspecified
CPT/HCPCS: 72100

== ENCOUNTER → 2025-03-12 12:24 | Outpatient (CLI) | payer MEDICARE, OTHER, SELFPAY ==
[2020-09-07 11:33] VITALS: BMI 38.8
--- NOTE | 2025-03-12 12:26 | DI.MG.S_ITS ---
MM diagnostic mammo BI, US breast BI limited: 03/12/2025 BI-RADS: 5 CLINICAL: 79-year old female for bilateral diagnostic mammogram and bilateral diagnostic breast ultrasound. Tyrer-Cuzick lifetime risk of 0.8%. No personal or first- degree family history of breast cancer. The patient reports a palpable abnormality (less than 1 month) in both breasts. PRIOR EXAMS No prior examinations available. MAMMOGRAPHY TECHNIQUE: 2D and 3D (tomosynthesis) digital mammographic views obtained, with additional images as needed for full coverage. Current study was also evaluated with a Computer Aided Detection (CAD) system. ULTRASOUND TECHNIQUE Real-time mirnada scale and color doppler imaging of the area of clinical interest was performed with image documentation. Right targeted breast ultrasound of the area of clinical interest and the axilla was performed with image documentation. Left targeted breast ultrasound of the area of clinical interest and the axilla was performed with image documentation. DENSITY C. The breasts are heterogeneously dense, which may obscure small masses. MAMMOGRAPHY FINDINGS Right: Upper Outer at 9:30, Middle depth: There are suspicious coarse heterogeneous calcifications in regional distribution. Right: Upper Outer at 10:00, Anterior depth: Underlying surface marker and correlating with patient concern of palpable lump there is an area of architectural distortion with associated calcifications. Left: Upper Outer at 2:00, Middle depth: There are suspicious fine-linear branching calcifications in linear distribution. Left: Upper Outer at 1:00, Anterior depth: Underlying surface marker and correlating with patient concern of palpable lump there is an indistinct, irregular, high-density mass present with associated architectural distortion and calcifications. ULTRASOUND FINDINGS Right: Upper Outer at 10:00, 3.5 cm from nipple, measuring 1.2 x 1.2 x 1.2 cm: Findings correlate with area of clinical and palpable concern. There is a mass showing posterior acoustic shadowing. Right: Upper Outer at 10:00, 3.5 cm from nipple, measuring 1.1 x 1.1 x 0.6 cm: Findings correlate with area of clinical and palpable concern. There is an irregularly shaped mass. Right: Axilla: No abnormal lymph nodes are seen in the axilla. No suspicious sonographic finding with typically benign findings noted. Left: Upper at 12:00, 4.0 cm from nipple, measuring 2.1 x 1.5 x 1.5 cm: Findings correlate with area of clinical and palpable concern. There is a mass showing posterior acoustic shadowing. Left: Upper Outer at 1:00, 4.0 cm from nipple, measuring 1 x 0.7 x 0.7 cm: Findings correlate with area of clinical and palpable concern. There is a mass showing posterior acoustic shadowing. Left: Axilla: No abnormal lymph nodes are seen in the axilla. No suspicious sonographic finding with typically benign findings noted. IMPRESSION: Right (Mass): Upper Outer at 10:00, 3.5 cm from nipple, measuring 1.2 x 1.2 x 1.2 cm * Highly Suggestive of Malignancy. Right (Mass): Upper Outer at 10:00, 3.5 cm from nipple, measuring 1.1 x 1.1 x 0.6 cm * Highly Suggestive of Malignancy. Right (Calcification): Upper Outer at 9:30, Middle depth * Suspicious findings with likelihood of malignancy. Left (Mass): Upper at 12:00, 4.0 cm from nipple, measuring 2.1 x 1.5 x 1.5 cm * Highly Suggestive of Malignancy. Left (Mass): Upper Outer at 1:00, 4.0 cm from nipple, measuring 1 x 0.7 x 0.7 cm * Highly Suggestive of Malignancy. Left (Calcification): Upper Outer at 2:00, Middle depth * Suspicious findings with likelihood of malignancy. RECOMMENDATIONS Right: Upper Outer at 9:30, Middle depth * Stereotactic-guided biopsy for further evaluation. Right: Upper Outer at 10:00, 3.5 cm from nipple * Ultrasound-guided vacuum-assisted biopsy for further evaluation. Right: Upper Outer at 10:00, 3.5 cm from nipple * Ultrasound-guided vacuum-assisted biopsy for further evaluation. Left: Upper Outer at 2:00, Middle depth * Stereotactic-guided biopsy for further evaluation. Left: Upper at 12:00, 4.0 cm from nipple * Ultrasound-guided vacuum-assisted biopsy for further evaluation. Left: Upper Outer at 1:00, 4.0 cm from nipple * Ultrasound-guided vacuum-assisted biopsy for further evaluation. COMMENTS: There are suspicious masses correlating with the palpable areas of concern in the bilateral breast. These represent an index mass with smaller satellite lesion. Given their proximity to each other, they can be biopsied and submitted as a single specimen for each breast (one biopsy per breast for total of two). The calcifications are also suspicious. Stereotactic biopsies are also recommended. Consider scheduling double site biopsy for each breast on the same day versus bilateral breast ultrasound biopsies followed by bilateral stereotactic biopsies at a later date. OVERALL ASSESSMENT CATEGORY BI-RADS-5: Highly Suggestive of Malignancy. ELECTRONICALLY SIGNED: Silviano Lawson M.D. on 03/12/2025 at 05:02:45 PM PT Interpreting Station ID: [id number]
== END ==
PROVIDERS: PCP Family Medicine; Referring Provider Family Medicine; Visit Provider Family Medicine
DX: N63.11 Unspecified lump in the right breast, upper outer quadrant (principal); N63.21 Unspecified lump in the left breast, upper outer quadrant; R92.1 Mammographic calcification found on diagnostic imaging of breast
CPT/HCPCS: 76642; 77066; G0279

== ENCOUNTER → 2025-03-27 14:55 | Outpatient (CLI) | payer MEDICARE, OTHER, SELFPAY ==
[2020-09-07 11:33] VITALS: BMI 38.8
--- NOTE | 2025-03-27 15:00 | DI.RAD.S_ITS ---
PROCEDURE: XR KNEE RT 3V INDICATIONS: KNEE PAIN TECHNIQUE: 3 views of the knee were acquired. COMPARISON: [facility], CR, XR KNEE LT 3V, 02/23/2021, 14:32. FINDINGS: Bones: Total knee arthroplasty components are present. There is no periprosthetic lucency. No periprosthetic fractures or suspicious bone lesions. Soft tissues: No joint effusion. No suspicious soft tissue calcifications. IMPRESSION: Expected appearance of right knee arthroplasty components. Dictated by: Mayda Jaimes M.D. on 03/28/2025 at 9:05 Approved by: Mayda Jaimes M.D. on 03/28/2025 at 9:05
== END ==
LOC: RAD 14:58
PROVIDERS: PCP Family Medicine
DX: M25.561 Pain in right knee (principal); G89.29 Other chronic pain; Z96.651 Presence of right artificial knee joint
CPT/HCPCS: 73562

== ENCOUNTER 2025-06-10 16:09 | Emergency (ER) | payer MEDICARE, OTHER, SELFPAY ==
[2020-09-07 11:33] VITALS: BMI 38.8
[2025-06-10] VITALS (13 sets, daily range): BP systolic 141–173; BP diastolic 61–77; PULSE 68–73; RESP 15–25; TEMP 36.5; O2SAT 97–99; BMI 38.4
--- NOTE | 2025-06-10 18:14 | DI.RAD.S_ITS ---
PROCEDURE: XR CHEST 1V INDICATIONS: suspected sepsis TECHNIQUE: One view of the chest was acquired. COMPARISON: [facility], CR, XR CHEST 1V, 11/15/2024, 17:55. [facility], CR, XR CHEST 2V, 03/06/2019, 12:20. FINDINGS: Surgical changes and devices: Surgical clips in the left axilla. Lungs and pleura: Lungs are clear. No pleural effusions or pneumothorax. Mediastinum: Mediastinal contours appear normal. Heart size is normal. Bones and chest wall: No suspicious bony lesions. Overlying soft tissues appear unremarkable. IMPRESSION: No acute cardiopulmonary abnormality is seen. Dictated by: Sam Short M.D. on 06/10/2025 at 19:28 Approved by: Sam Short M.D. on 06/10/2025 at 19:28
--- NOTE | 2025-06-10 18:14 | EKG_ITS ---
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
[2025-06-10 18:22] LABS: Add Manual Diff / Slide Review NO; Hematocrit 32.4 % (36-46); Hemoglobin 11.2 g/dL (12.0-16.0); Lymphocytes Absolute Auto 1200 /uL (1100-4500); Mean Corpuscular HGB Conc 34.5 % (30-36); Mean Corpuscular Hemoglobin 32.7 PG (26-34); Mean Corpuscular Volume 94.8 fL (80-100); Platelet Count 262 X10^3/uL (150-400)
[2025-06-10 18:28] LABS: Alanine Aminotransferase 12 IU/L (<35); Albumin 4.1 g/dL (3.5-5.0); Albumin Globulin Ratio 1.2 (1.0-2.8); Alkaline Phosphatase 93 U/L (38-126); Blood Urea Nitrogen 15 mg/dL (7-17); Calcium 9.6 mg/dL (8.4-10.2); Carbon Dioxide 28 mmol/L (22-32); Chloride 100 mmol/L (98-107); Estimated Glomerular Filt Rate 50 mL/min (>60); Globulin 3.5 g/dL (1.7-4.1); Glucose 173 mg/dL (70-99); HEMOLYSIS 23 (0-50); Lactate (Lactic Acid) 1.8 mmol/L (0.7-2.1); Lipase 102 U/L (23-300); Potassium 3.6 mmol/L (3.4-5.1); Sodium 137 mmol/L (137-145); Total Protein 7.6 g/dL (6.3-8.2)
[2025-06-10 18:44] LABS: Procalcitonin 0.057 ng/mL (<0.5)
[2025-06-10] MEDS: SODIUM CHLORIDE 0.9% 1,000 ML 1000 ML IV (18:52)
--- NOTE | 2025-06-10 19:11 | ED.SKABFB ---
HPI - Skin/Abscess/Foreign Bdy General Chief complaint: Skin/Abscess/Foreign Body Stated complaint: Tube from mastectomy came out Time Seen by Provider: 06/10/25 17:40 Source: patient Mode of arrival: Wheelchair Limitations: no limitations History of Present Illness HPI narrative: 80-year-old female patient with a history of hypertension, dyslipidemia, obesity and breast cancer with bilateral mastectomy performed 05/19/2025. She has had drains bilaterally but the drain on the right came out earlier today. She has had no fever, chills or swelling. Related Data Home Medications ?Medication ?Instructions ?Recorded ?Confirmed atorvastatin 20 mg tablet (Lipitor) 20 mg PO BEDTIME 09/02/20 01/30/25 conjugated estrogens 1.25 mg 1.25 mg PO DAILY 09/02/20 01/30/25 tablet (Premarin) metoprolol tartrate 100 mg tablet 100 mg PO DAILY 09/02/20 01/30/25 polyethylene glycol 3350 17 gram 17 g PO DAILY PRN Constipation 09/07/20 01/30/25 oral powder packet (Miralax) pioglitazone 15 mg tablet (Actos) 30 mg PO BID 07/15/24 01/30/25 zolpidem 5 mg tablet (Ambien) 5 mg PO BEDTIME 07/15/24 01/30/25 atenolol 50 mg tablet 50 mg PO DAILY 11/04/24 01/30/25 losartan 50 mg tablet 50 mg PO DAILY 11/04/24 01/30/25 medroxyprogesterone 2.5 mg tablet 2.5 mg PO DAILY 11/04/24 01/30/25 potassium gluconate 550 mg (90 mg) 550 mg PO DAILY 11/04/24 01/30/25 tablet hydrocodone 5 mg-acetaminophen 325 1 tab PO Q6H PRN Pain (Scale Score 01/30/25 01/30/25 mg tablet 1-3) Allergies Allergy/AdvReac Type Severity Reaction Status Date / Time Sulfa (Sulfonamide Allergy Severe Anaphylaxis Verified 01/30/25 11:21 Antibiotics) Review of Systems Review of Systems ROS Unobtainable: All systems reviewed & are unremarkable except as noted in HPI and below Musculoskeletal Musculoskeletal: Reports as per HPI Integumentary/Breasts Skin/Breast: Reports as per HPI Patient History Medical History Urinary leakage Bladder outlet obstruction Voiding dysfunction Delayed menopause Constipation Pneumaturia Incomplete emptying of bladder Osteoarthritis Insomnia Diverticulosis HLD (hyperlipidemia) Diabetes HTN (hypertension) Surgical History 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) History of partial surgical removal of colon Hx of bilateral cataract extraction (07/2020) Hx of appendectomy Hx of cholecystectomy History of colon resection (~2013) History of bladder surgery Family History Other Anomaly of ear with impairment of hearing Diabetes mellitus Hyperlipidemia Hypertension Social History marital status: number of children: 3 household members: spouse Smoking Status: Never smoker alcohol intake: never caffeine: No Type(s) of exercise: regular exercise frequency: 1-2 times per week duration: 15-30 minutes/day Smoking Status: Never smoker Exam Narrative Exam Narrative: General: Alert and conversant. No distress. Appears well nourished and well hydrated Neck: No tenderness or adenopathy. No meningismus. No JVD Lungs: Clear to auscultation with good air movement. No wheezing, rales or rhonchi. No respiratory distress Cardiac: Regular rate and rhythm with no appreciable murmur or gallop Abdomen: Soft, nontender with no distention or masses. Normal bowel sounds. No rebound or guarding Musculoskeletal: Exam of the extremities, axial spine and ribcage reveals no deformity, bony tenderness or swelling. Range of motion intact Neuro: Alert and oriented. Cranial nerves, motor, sensory and cerebellar all grossly intact. No focal deficit Skin: Patient has scars from her recent mastectomy but no erythema, pus or pockets which would indicate abscesses. There is an opening near the right lateral breast where her drain came out. Right breast is larger than the left breast but both are nontender. Otherwise skin is Warm and normal color. No rashes Psychological: Normal affect and interaction. No evidence of delusion or psychosis. Normal mood. Initial Vital Signs Initial Vital Signs: Vital Signs Temperature 97.7 F 06/10/25 16:24 Pulse Rate 73 06/10/25 16:24 Respiratory Rate 16 06/10/25 16:24 Blood Pressure 148/68 H 06/10/25 16:24 Pulse Oximetry 98 06/10/25 16:24 Oxygen Delivery Method Room Air 06/10/25 16:24 Course Course Course Narrative: 19:35 I discussed the patient's care with Dr. Reynolds, covering for Dr. Akbar who asked that the patient be seen tomorrow in surgery clinic. They are to call in or the clinic we will call them. Orders Ordered: ED Orders 06/10/25 18:04 Blood Culture Stat Complete Blood Count AUTO DIFF Stat Comprehensive Metabolic Panel Stat Lactate (Lactic Acid) Stat Lipase Stat Procalcitonin Stat 06/10/25 18:12 Wound Culture and Gram Stain Stat 06/10/25 18:14 XR chest 1V Stat EKG-12 Lead Stat RT Consult Eval and Treat NOW 06/10/25 18:55 PTT Partial Thromboplastin Tom Stat Prothrombin Time INR Stat Discontinued Medications Sodium Chloride (Normal Saline 0.9%) 1,000 mls @ 1,000 mls/hr IV BOLUS ONE Stop: 06/10/25 19:13 Last Admin: 06/10/25 18:52 Dose: 1,000 mls/hr Documented By: LAWRENCE Ondansetron HCl (Ondansetron 4 Mg/2 Ml Inj) 4 mg IV NOW PRN PRN Reason: Nausea And Vomiting Ondansetron HCl (Ondansetron 4 Mg Odt) 4 mg PO NOW PRN PRN Reason: Nausea And Vomiting Vital Signs Vital signs: Vital Signs - 8 hr 06/10/25 16:24 06/10/25 17:46 06/10/25 17:46 Temperature 97.7 F Pulse Rate 73 71 Respiratory Rate 16 Blood Pressure 148/68 H 141/67 H Pulse Oximetry 98 99 Oxygen Delivery Method Room Air 06/10/25 17:49 06/10/25 17:49 06/10/25 18:00 Temperature Pulse Rate 71 70 Respiratory Rate 20 20 Blood Pressure 159/70 H Pulse Oximetry 98 98 Oxygen Delivery Method 06/10/25 18:04 06/10/25 18:04 06/10/25 18:15 Temperature Pulse Rate 71 Respiratory Rate 21 Blood Pressure 164/74 H 147/61 H Pulse Oximetry 98 Oxygen Delivery Method 06/10/25 18:15 06/10/25 18:30 06/10/25 18:31 Temperature Pulse Rate 69 73 Respiratory Rate 16 24 Blood Pressure 165/77 H Pulse Oximetry 99 98 Oxygen Delivery Method 06/10/25 18:31 06/10/25 18:45 06/10/25 18:45 Temperature Pulse Rate 72 69 Respiratory Rate 22 18 Blood Pressure 153/63 H Pulse Oximetry 99 99 Oxygen Delivery Method 06/10/25 18:55 06/10/25 18:55 06/10/25 19:00 Temperature Pulse Rate 70 68 Respiratory Rate 25 H 15 Blood Pressure 155/72 H Pulse Oximetry 97 97 Oxygen Delivery Method 06/10/25 19:00 06/10/25 19:30 06/10/25 19:30 Temperature Pulse Rate 72 Respiratory Rate 21 Blood Pressure 151/71 H 167/74 H Pulse Oximetry 97 Oxygen Delivery Method 06/10/25 20:00 06/10/25 20:00 Temperature Pulse Rate 73 Respiratory Rate 20 Blood Pressure 173/72 H Pulse Oximetry 98 Oxygen Delivery Method MDM - Skin/Abscess/Foreign Bdy Differential Diagnosis Differential diagnosis: Likely abscess of skin or subcutaneous tissue, cellulitis and other (Postoperative fluid collection such as seroma. Less likely hematoma) Medical Records Attestation: I reviewed the patient's medical records. Lab Data Attestation: I reviewed the patient's lab results. Lab results narrative: CBC and CMP essentially unremarkable and reassuring 06/10/25 18:04 06/10/25 18:04 Labs: Lab Results 06/10/25 06/10/25 Range/Units 18:04 18:55 WBC 5.6 (4.5-11.0) X10^3/uL RBC 3.42 L (4.0-5.2) X10^6/uL Hgb 11.2 L (12.0-16.0) g/dL Hct 32.4 L (36-46) % MCV 94.8 (80-100) fL MCH 32.7 (26-34) PG MCHC 34.5 (30-36) % RDW 13.5 (11.6-14.8) % Plt Count 262 (150-400) X10^3/uL Neut % (Auto) 62.3 (50-75) % Lymph % (Auto) 21.3 L (25-40) % Posey % (Auto) 9.7 (3-14) % Eos % (Auto) 5.7 H (2-4) % Baso % (Auto) 1.0 (0-2) % Neut # (Auto) 3500 (5114-5611) /uL Lymph # (Auto) 1200 (7200-8603) /uL Posey # (Auto) 500 (0-900) /uL Eos # (Auto) 300 (0-450) /uL Baso # (Auto) 100 (0-100) /uL PT 11.7 (9.4-12.5) SECONDS INR 1.0 (0.9-1.3) APTT 25 L (25.1-36.5) SECONDS Sodium 137 (137-145) mmol/L Potassium 3.6 (3.4-5.1) mmol/L Chloride 100 (98-107) mmol/L Carbon Dioxide 28 (22-32) mmol/L BUN 15 (7-17) mg/dL Creatinine 1.11 H (0.52-1.04) mg/dL Estimated GFR 50 L (>60) mL/min BUN/Creatinine Ratio 13.5 (6-22) Glucose 173 H (70-99) mg/dL Lactate 1.8 (0.7-2.1) mmol/L Calcium 9.6 (8.4-10.2) mg/dL Total Bilirubin 0.5 (0.2-1.3) mg/dL AST 28 (14-36) IU/L ALT 12 (<35) IU/L Alkaline Phosphatase 93 (38-126) U/L Total Protein 7.6 (6.3-8.2) g/dL Albumin 4.1 (3.5-5.0) g/dL Globulin 3.5 (1.7-4.1) g/dL Albumin/Globulin Ratio 1.2 (1.0-2.8) Lipase 102 (23-300) U/L Procalcitonin 0.057 (<0.5) ng/mL ECG Data Attestation: I personally reviewed and interpreted this ECG as follows: (Normal sinus rhythm with normal axis and intervals. Rate 69. No ischemic changes ) MDM Narrative Medical decision making narrative: Patient had a drain displaced from her right mastectomy. She has had fluid collecting in the breast but no warmth or tenderness. Does not appear to be a hematoma, abscess. Possible seroma or fluid collecting that would be draining otherwise. Lab work reassuring. I do not believe she has an infection or need for immediate intervention. I discussed this with General surgery as documented in they agree that she can be followed up tomorrow morning. Patient was given instructions to follow up with her surgical team tomorrow. Discharge Plan Departure Patient Disposition: Home Clinical Impression: Drainage from surgical wound Instructions: DI with Wound Drains Activity Restrictions/Additional Instructions: Continue current care. Call General surgery, Dr. Akbar tomorrow morning for follow-up tomorrow. They may call you also. Return to the ER if worse Prescriptions: No Action medroxyprogesterone 2.5 mg tablet 2.5 mg PO DAILY atenolol 50 mg tablet 50 mg PO DAILY potassium gluconate 550 mg (90 mg) tablet 550 mg PO DAILY losartan 50 mg tablet 50 mg PO DAILY atorvastatin [Lipitor] 20 mg Tablet 20 mg PO BEDTIME metoprolol tartrate 100 mg Tablet 100 mg PO DAILY Premarin 1.25 mg Tablet 1.25 mg PO DAILY polyethylene glycol 3350 [Miralax] 17 gram Powder In Packet 17 g PO DAILY PRN (Reason: Constipation) pioglitazone [Actos] 15 mg tablet 30 mg PO BID hydrocodone-acetaminophen 5-325 mg tablet 1 tab PO Q6H PRN (Reason: Pain (Scale Score 1-3)) zolpidem [Ambien] 5 mg tablet 5 mg PO BEDTIME Referrals: Randy Akbar MD [Non-Staff, General Surgery] - 06/11/25 Referral Note: Displaced drain in the right breast. Swelling. Obie Hernadez MD [Primary Care Provider, Family Practice] Stand Alone Forms: Patient Portal/API
[2025-06-10 19:12] LABS: INR 1.0 (0.9-1.3); Prothrombin Time 11.7 SECONDS (9.4-12.5)
[2025-06-10 19:14] LABS: PTT Partial Thromboplastin Tim 25 SECONDS (25.1-36.5)
--- NOTE | 2025-06-10 19:15 | PC.NURSE ---
R-breast BRYANT drain fell out this morning. L-breast BRYANT drain intact. Pt had double mastectomy mid-Sep, L-breast weeping and , culture sent. Physician at bedside to assess L-breast.
== END 2025-06-10 20:20 | disposition home or self-care (01) ==
PROVIDERS: Emergency Provider Emergency Medicine; PCP Family Medicine
DX: T81.89XA Other complications of procedures, not elsewhere classified, initial encounter (principal)
CPT/HCPCS: 36415; 71045; 80053; 83605; 83690; 84145; 85025; 85610; 85730; 87040; 87070; 87075; 87077; 87186; 87205; 93005; 99284